=== PATIENT | female | born 1950 | race Caucasian/White ===

== ENCOUNTER 2022-07-01 15:26 | Observation (INO) ==
[2022-07-01] MEDS ORDERED: ACETAMINOPHEN 500 MG TAB PO STA (15:50)
--- NOTE | 2022-07-01 15:54 | Emergency Department Note ---
Impression & Plan Ankle fracture, Atrial fibrillation ED Provider Note NAME: SARAH SCHRADER AGE: 72 SEX: F : 1950 ARRIVES VIA: Ambulance INFORMANT: Patient, ED PROVIDER(S): Kam Weeks MD CHIEF COMPLAINT: Leg pain MEDICAL DECISION MAKING: Patient presents due to concern for leg pain while she was transferring from wheelchair and did suffer pain to the right lower extremity. Plain x-rays were obtained and the patient was given p.o. oxycodone. I did confirm that patient did not have major issue with taking this in the past and states that she had a possible reaction many many years ago. Patient was placed on retail product advisor a nd pulse oximetry. The patient tolerated the pain medication without any issue. The patient was noted to have a right lower extremity fibular fracture and possible avulsion fracture. The patient was placed in a splint. Subsequently the patient was attempted to just transfer back to wheelchair in order to be discharged home but was unable to do so. Given this concern for patient safety IV was established blood work was obtained and did speak the on-call hospitalist service Dr. Campoverde and the patient was admitted to the medicine service.Patient's blood work shows a normal white count H&H and platelet count kidney function with creatinine 0.7 and electrolytes are grossly normal. Definitive Fracture Care note: Dx: Right fibular fracture Plan: Immobilization, rest, ice, elevation, analgesia, orthopedic follow up in 3-5 days. Procedures: Splinting of the right lower extremity Indication: Right fibula fracture Verbal consent obtained. Risks and benefits were explained with the usual customary discussion. The injured extremity was identified. The patient was prepped and measured for the placement of a trilaminar short leg ortho-glass splint. Splint applied in the standard fashion over a layer of webril and sec ured using an elastic bandage. Set into a position of function. Normal neurovascular status after placement verified by me. The patient tolerated the procedure well and the care of the splint was discussed with the patient/family. No complications. Prior /Outside records reviewed: None Differential diagnosis: Fracture, subluxation, dislocation, contusion, ligamentous injury, neurovascular, compartment syndrome, rhabdomyolysis, as well as other pathologies. Diagnostics, as interpreted by me: ECG: A-fib with RVR, rate of 112, normal QRS normal axis Cardiac monitoring: An order was placed for continuous cardiac monitoring. The monitor shows a rate of 98 with irregularly irregular rhythm. Patient was placed on pulse oximetry Medical decision rules: None Imaging studies: See below I informally reviewed the patient's right ankle x-ray which did show a fibular fracture. HPI: Patient presents to the emergency department after she had gone to outpatient wound care clinic and had caught her right lower extremity on her wheelchair and states that she reported feeling a pop with immediate pain. The patient does have a prior history of venous stasis ulcer of the left lower extremity. Patient states that she did have immediate pain. The patient is primarily wheelchair-bound but will transportation equipment painter order to transfer. Patient had been seen at the wound care center and told them about the patient's right leg pain associated discomfort with a wheelchair issue and was referred here for further evaluation and treatment. Patient denies falling. Patient did not take anything for pain prior to arrival. Patient does have a known history of A-fib PAST MEDICAL HISTORY: See Below PAST SURGICAL HISTORY: See Below SOCIAL HISTORY: See Below HOME MEDICATIONS: See Below ALLERGIES: See Below VITALS: See Below PHYSICAL EXAMINATION: GENERAL: NAD, wearing a mask, non-toxic. BMI 45. EYE EXAM: Normal conjunctiva. PERRL, no anisocoria and EOM's grossly intact w/o pain. NECK: Supple, no nuchal rigidity, no adenopathy, non-tender. No signs of meningismus. FROM of the neck with good chin to chest and neck extension. No stridor. LUNGS: Clear to auscultation. Normal chest wall mechanics. HEART: Irregularly irregular, no MRG. ABDOMEN: Abdomen soft, non-tender, no masses, no rebound or guarding. BACK: No CVA TTP. SKIN: No rashes and no bruising. UPPER EXTREMITIES: Upper extremities are grossly normal. LOWER EXTREMITIES: Pain to palpation to the distal tibia and lateral ankle as well as proximal foot, swelling noted. Neurovascular intact distally. Left lower extremity in boot. NEURO EXAM: A&O x3, cranial nerves II-XII grossly intact, normal speech, moves all 4 extremities. 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 Beliefs That Will Affect Care: None marital status: Single Current Living Situation: Significant Other current occupational status: disabled How many Children do You have: 2 Feels Safe at Home: Yes Childhood Exposure to Second-Hand Smoke: Yes Diet: regular caffeine: Yes during the past year weight has: remained stable Dental Care, Regularly: No Physical Activity Frequency: Does not Exercise Seatbelt Use: always Sunscreen Use: Yes Assistive Devices: Bedside Commode, Cane, Walker and Wheelchair Allergies Allergies Allergy/AdvReac Type Severity Reaction Status Date / Time strawberry Allergy Verified 07/02/22 10:32 oxycodone [From OxyContin] AdvReac Severe sob Verified 07/01/22 16:13 Home Meds Home Medications Medication Instructions Recorded Confirmed amiodarone 200 mg tablet 200 mg PO DAILY 04/20/22 07/01/22 diclofenac sodium 1 % topical gel 2 g topical DIRECTED PRN Pain 04/20/22 07/01/22 diltiazem HCl 240 mg 240 mg PO DAILY 04/20/22 07/01/22 tablet,extended release 24 hr gabapentin 800 mg tablet 800 mg PO TID 06/30/22 07/01/22 potassium chloride 20 mEq 20 meq PO DAILY 07/01/22 07/01/22 tablet,extended release Previous Rx's Medication Instructions Recorded famotidine 20 mg tablet 20 mg PO BID #60 tabs 07/03/21 furosemide 40 mg tablet 40 mg PO DAILY #30 tabs 07/03/21 lisinopril 40 mg tablet 40 mg PO BID #30 tabs 07/03/21 pantoprazole 40 mg tablet,delayed 40 mg PO DAILY #30 tabs 07/03/21 release simvastatin 10 mg tablet 10 mg PO DAILY #30 tabs 07/03/21 sertraline 50 mg tablet 50 mg PO DAILY #30 tabs 04/20/22 metoprolol succinate 25 mg 25 mg PO DAILY #30 tabs 04/30/22 tablet,extended release 24 hr apixaban 5 mg tablet 5 mg PO BID #60 tabs 05/26/22 vibegron 75 mg tablet (Gemtesa) 75 mg PO DAILY #90 tabs 06/26/22 sumatriptan succinate 50 mg tablet See Rx Instructions PO .COMPLEX 06/30/22 PRN migraine headache #30 tabs oxycodone 5 mg tablet 10 mg PO Q4H PRN pain #30 tabs 07/07/22 Results & Data (ED) Vital Signs Vital Signs - 24 hr 07/01/22 15:34 Temperature 36.8 C Temperature Source Oral Pulse Rate 108 H Pulse Rhythm Irregular Pulse Strength Normal Respiratory Rate 18 Respiratory Effort / Characteristics Non-Labored Spontaneous Respiratory Depth Normal Respiratory Pattern Regular Blood Pressure 175/123 H Blood Pressure Mean 140 Blood Pressure Position Lying Pulse Oximetry 98 Oxygen Delivery Method Room Air Sepsis Recent Fever Within 48 Hours No Sepsis New/Unexplained Change in Mental Status No Sepsis Action Taken by Nursing No Action Required Home Medications Current Medication List: was personally reviewed by me Laboratory Data Attestation: I reviewed the patient's lab results. 07/06/22 06:15 07/06/22 06:15 Lab Results 07/01/22 07/01/22 07/01/22 Range/Units 19:20 19:20 19:20 WBC 10.69 (4.8-10.8) K/ul RBC 5.03 (4.20-5.40) M/uL Hgb 14.2 (12.0-16.0) g/dl Hct 44.1 (37.0-47.0) % MCV 87.7 (80.0-100.0) fL MCH 28.2 (25.0-34.0) pg MCHC 32.2 (32.0-36.0) g/dL RDW Std Deviation 54.5 H (36.4-46.3) fL RDW Coeff of Jose Miguel 16.9 H (11.5-14.5) % Plt Count 350 (130-400) K/uL MPV 11.3 (9.4-12.4) fL Immature Gran % (Auto) 0.2 % Neut % (Auto) 66.5 % Lymph % (Auto) 22.9 % [place] % (Auto) 7.9 % Eos % (Auto) 1.8 % Baso % (Auto) 0.7 % Neut # (Auto) 7.12 H (1.40-6.50) K/uL Lymph # (Auto) 2.45 (1.2-3.4) K/uL [place] # (Auto) 0.84 H (0.11-0.59) K/uL Eos # (Auto) 0.19 (0-0.50) K/uL Baso # (Auto) 0.07 (0-0.2) K/uL Immature Gran # (Auto) 0.02 (0.01-0.20) K/uL PT 11.2 (9.0-12.0) Seconds INR 1.0 (0.9-1.1) Sodium 138 (136-145) mmol/L Potassium 4.2 (3.5-5.1) mmol/L Chloride 105 (98-107) mmol/L Carbon Dioxide 24 (21-32) mmol/L Anion Gap 9 (3-11) BUN 13 (6-23) mg/dl Creatinine 0.77 (0.6-1.2) mg/dl Est Cr Clr Drug Dosing 95.6 ml/min Est GFR ( Amer) 90.0 ml/min Est GFR (Non-Af Amer) 77.7 ml/min BUN/Creatinine Ratio 16.9 (10-20) Glucose 119 H (70-99(Fasting)) mg/dl Calcium 9.4 (8.6-10.3) mg/dl Phosphorus (2.5-4.9) mg/dl Magnesium 1.8 (1.7-2.4) mg/dl Total Bilirubin 0.4 (0.2-1.0) mg/dl AST 15 (13-39) U/L ALT 10 (7-52) U/L Alkaline Phosphatase 85 (34-104) U/L Total Protein 8.3 (6.0-8.3) gm/dl Albumin 4.1 (3.4-5.0) gm/dl Globulin 4.2 H (2.5-4.0) gm/dl Albumin/Globulin Ratio 1.0 (0.9-2) TSH (0.300-4.500) uIu/ml Free T4 (0.61-1.60) ng/dl SARS-CoV-2, RNA, NAAT (NEGATIVE) 07/01/22 07/01/22 07/02/22 Range/Units 19:20 19:22 07:34 WBC 6.24 (4.8-10.8) K/ul RBC 4.38 (4.20-5.40) M/uL Hgb 12.3 (12.0-16.0) g/dl Hct 39.5 (37.0-47.0) % MCV 90.2 (80.0-100.0) fL MCH 28.1 (25.0-34.0) pg MCHC 31.1 L (32.0-36.0) g/dL RDW Std Deviation 57.0 H (36.4-46.3) fL RDW Coeff of Jose Miguel 17.1 H (11.5-14.5) % Plt Count 282 (130-400) K/uL MPV 11.3 (9.4-12.4) fL Immature Gran % (Auto) 0.0 % Neut % (Auto) 53.4 % Lymph % (Auto) 28.7 % [place] % (Auto) 13.8 % Eos % (Auto) 3.5 % Baso % (Auto) 0.6 % Neut # (Auto) 3.33 (1.40-6.50) K/uL Lymph # (Auto) 1.79 (1.2-3.4) K/uL [place] # (Auto) 0.86 H (0.11-0.59) K/uL Eos # (Auto) 0.22 (0-0.50) K/uL Baso # (Auto) 0.04 (0-0.2) K/uL Immature Gran # (Auto) 0.00 L (0.01-0.20) K/uL PT (9.0-12.0) Seconds INR (0.9-1.1) Sodium (136-145) mmol/L Potassium (3.5-5.1) mmol/L Chloride (98-107) mmol/L Carbon Dioxide (21-32) mmol/L Anion Gap (3-11) BUN (6-23) mg/dl Creatinine (0.6-1.2) mg/dl Est Cr Clr Drug Dosing ml/min Est GFR ( Amer) ml/min Est GFR (Non-Af Amer) ml/min BUN/Creatinine Ratio (10-20) Glucose (70-99(Fasting)) mg/dl Calcium (8.6-10.3) mg/dl Phosphorus (2.5-4.9) mg/dl Magnesium (1.7-2.4) mg/dl Total Bilirubin (0.2-1.0) mg/dl AST (13-39) U/L ALT (7-52) U/L Alkaline Phosphatase (34-104) U/L Total Protein (6.0-8.3) gm/dl Albumin (3.4-5.0) gm/dl Globulin (2.5-4.0) gm/dl Albumin/Globulin Ratio (0.9-2) TSH 8.814 H (0.300-4.500) uIu/ml Free T4 1.04 (0.61-1.60) ng/dl SARS-CoV-2, RNA, NAAT NEGATIVE (NEGATIVE) 07/02/22 07/03/22 07/03/22 Range/Units 07:34 07:11 07:11 WBC 7.11 (4.8-10.8) K/ul RBC 4.62 (4.20-5.40) M/uL Hgb 13.1 (12.0-16.0) g/dl Hct 40.9 (37.0-47.0) % MCV 88.5 (80.0-100.0) fL MCH 28.4 (25.0-34.0) pg MCHC 32.0 (32.0-36.0) g/dL RDW Std Deviation 55.4 H (36.4-46.3) fL RDW Coeff of Jose Miguel 17.0 H (11.5-14.5) % Plt Count 286 (130-400) K/uL MPV 10.8 (9.4-12.4) fL Immature Gran % (Auto) 0.1 % Neut % (Auto) 63.5 % Lymph % (Auto) 22.8 % [place] % (Auto) 9.4 % Eos % (Auto) 3.8 % Baso % (Auto) 0.4 % Neut # (Auto) 4.51 (1.40-6.50) K/uL Lymph # (Auto) 1.62 (1.2-3.4) K/uL [place] # (Auto) 0.67 H (0.11-0.59) K/uL Eos # (Auto) 0.27 (0-0.50) K/uL Baso # (Auto) 0.03 (0-0.2) K/uL Immature Gran # (Auto) 0.01 (0.01-0.20) K/uL PT (9.0-12.0) Seconds INR (0.9-1.1) Sodium 141 140 (136-145) mmol/L Potassium 4.5 4.4 (3.5-5.1) mmol/L Chloride 108 H 103 (98-107) mmol/L Carbon Dioxide 28 32 (21-32) mmol/L Anion Gap 5 5 (3-11) BUN 11 14 (6-23) mg/dl Creatinine 0.63 0.89 (0.6-1.2) mg/dl Est Cr Clr Drug Dosing 116.5 82.4 ml/min Est GFR ( Amer) 104.6 75.6 ml/min Est GFR (Non-Af Amer) 90.2 65.2 ml/min BUN/Creatinine Ratio 17.5 15.7 (10-20) Glucose 94 97 (70-99(Fasting)) mg/dl Calcium 9.4 9.5 (8.6-10.3) mg/dl Phosphorus 3.4 3.6 (2.5-4.9) mg/dl Magnesium 1.9 1.8 (1.7-2.4) mg/dl Total Bilirubin (0.2-1.0) mg/dl AST (13-39) U/L ALT (7-52) U/L Alkaline Phosphatase (34-104) U/L Total Protein (6.0-8.3) gm/dl Albumin 3.6 3.8 (3.4-5.0) gm/dl Globulin (2.5-4.0) gm/dl Albumin/Globulin Ratio (0.9-2) TSH (0.300-4.500) uIu/ml Free T4 (0.61-1.60) ng/dl SARS-CoV-2, RNA, NAAT (NEGATIVE) Administered Medications Discontinued Medications Acetaminophen (Acetaminophen 500 Mg Tab) 1,000 mg PO NOW STA Stop: 07/01/22 15:51 Last Admin: 07/01/22 16:09 Dose: 1,000 mg Documented By: CHING Acetaminophen (Acetaminophen 325 Mg Tab) 650 mg PO Q4H PRN PRN Reason: pain/fever Stop: 07/31/22 21:29 Last Admin: 07/01/22 23:45 Dose: 650 mg Documented By: JOSIAH Acetaminophen (Acetaminophen 500 Mg Tab) 1,000 mg PO Q8H PRN PRN Reason: pain/fever Stop: 07/31/22 21:29 Last Admin: 07/06/22 21:04 Dose: 1,000 mg Documented By: Admin: 07/04/22 10:43 Dose: 1,000 mg Documented By: Admin: 07/03/22 12:42 Dose: 1,000 mg Documented By: FAISAL Amiodarone HCl (Amiodarone 200 Mg Tab) 200 mg PO DAILY [facility] Stop: 08/01/22 08:59 Last Admin: 07/07/22 09:44 Dose: 200 mg Documented By: Admin: 07/06/22 08:58 Dose: 200 mg Documented By: Admin: 07/05/22 08:33 Dose: 200 mg Documented By: Admin: 07/04/22 09:07 Dose: 200 mg Documented By: Admin: 07/03/22 09:49 Dose: 200 mg Documented By: Admin: 07/02/22 09:32 Dose: 200 mg Documented By: EVY Apixaban (Apixaban 5 Mg Tablet) 5 mg PO BID ADDY Stop: 07/31/22 21:29 Last Admin: 07/07/22 09:45 Dose: 5 mg Documented By: Admin: 07/06/22 21:03 Dose: 5 mg Documented By: Admin: 07/06/22 09:00 Dose: 5 mg Documented By: Admin: 07/05/22 20:18 Dose: 5 mg Documented By: Admin: 07/05/22 08:34 Dose: 5 mg Documented By: Admin: 07/04/22 20:58 Dose: 5 mg Documented By: Admin: 07/04/22 09:08 Dose: 5 mg Documented By: Admin: 05/26/23 20:11 Dose: 5 mg Documented By: Admin: 07/03/22 09:47 Dose: 5 mg Documented By: Admin: 07/02/22 20:26 Dose: 5 mg Documented By: Admin: 07/02/22 09:31 Dose: 5 mg Documented By: Admin: 07/01/22 23:24 Dose: 5 mg Documented By: JOSIAH Diltiazem HCl (Diltiazem Hcl 240 Mg Capcr) 240 mg PO DAILY ADDY Stop: 08/01/22 08:59 Last Admin: 07/07/22 09:45 Dose: 240 mg Documented By: Admin: 07/06/22 08:59 Dose: 240 mg Documented By: Admin: 07/05/22 08:31 Dose: 240 mg Documented By: Admin: 07/04/22 09:07 Dose: 240 mg Documented By: Admin: 07/03/22 09:48 Dose: 240 mg Documented By: Admin: 07/02/22 09:31 Dose: 240 mg Documented By: EVY Famotidine (Famotidine 20 Mg Tab) 20 mg PO BID ADDY Stop: 07/31/22 21:29 Last Admin: 07/07/22 09:45 Dose: 20 mg Documented By: Admin: 07/06/22 21:03 Dose: 20 mg Documented By: Admin: 07/06/22 08:59 Dose: 20 mg Documented By: Admin: 07/05/22 20:18 Dose: 20 mg Documented By: Admin: 07/05/22 08:34 Dose: 20 mg Documented By: Admin: 07/04/22 20:58 Dose: 20 mg Documented By: Admin: 07/04/22 09:08 Dose: 20 mg Documented By: Admin: 07/03/22 20:11 Dose: 20 mg Documented By: Admin: 07/03/22 09:48 Dose: 20 mg Documented By: Admin: 07/02/22 20:25 Dose: 20 mg Documented By: Admin: 07/02/22 09:31 Dose: 20 mg Documented By: Admin: 07/01/22 23:24 Dose: 20 mg Documented By: JOSIAH Furosemide (Furosemide 40 Mg Tab) 40 mg PO DAILY ADDY Stop: 08/01/22 08:59 Last Admin: 07/07/22 09:45 Dose: 40 mg Documented By: Admin: 07/06/22 08:59 Dose: 40 mg Documented By: Admin: 07/05/22 08:33 Dose: 40 mg Documented By: SMPeter Admin: 07/04/22 09:08 Dose: 40 mg Documented By: Admin: 07/03/22 09:48 Dose: 40 mg Documented By: Admin: 07/02/22 09:32 Dose: 40 mg Documented By: EVY Gabapentin (Gabapentin 800 Mg Tab) 800 mg PO TID ADDY Stop: 07/31/22 21:29 Last Admin: 07/07/22 14:50 Dose: 800 mg Documented By: Admin: 07/07/22 09:45 Dose: 800 mg Documented By: Admin: 07/06/22 21:03 Dose: 800 mg Documented By: Admin: 07/06/22 14:07 Dose: 800 mg Documented By: Admin: 07/06/22 08:59 Dose: 800 mg Documented By: Admin: 07/05/22 20:18 Dose: 800 mg Documented By: Admin: 07/05/22 13:22 Dose: 800 mg Documented By: Admin: 07/05/22 08:34 Dose: 800 mg Documented By: Admin: 07/04/22 20:59 Dose: 800 mg Documented By: Admin: 07/04/22 13:58 Dose: 800 mg Documented By: SMPeter Admin: 07/04/22 09:08 Dose: 800 mg Documented By: SMPeter Admin: 07/03/22 20:11 Dose: 800 mg Documented By: Admin: 07/03/22 13:56 Dose: 800 mg Documented By: Admin: 07/03/22 09:48 Dose: 800 mg Documented By: Admin: 07/02/22 20:25 Dose: 800 mg Documented By: Admin: 07/02/22 15:12 Dose: 800 mg Documented By: Admin: 07/02/22 09:31 Dose: 800 mg Documented By: Admin: 07/01/22 23:24 Dose: 800 mg Documented By: JOSIAH Lisinopril (Lisinopril 40 Mg Tab) 40 mg PO BID ADDY Stop: 07/31/22 21:29 Last Admin: 07/07/22 09:45 Dose: 40 mg Documented By: Admin: 07/06/22 21:03 Dose: 40 mg Documented By: Admin: 07/06/22 08:59 Dose: 40 mg Documented By: Admin: 07/05/22 20:18 Dose: 40 mg Documented By: Admin: 07/05/22 08:34 Dose: 40 mg Documented By: Admin: 07/04/22 20:59 Dose: 40 mg Documented By: Admin: 07/04/22 09:06 Dose: 40 mg Documented By: Admin: 07/03/22 20:11 Dose: 40 mg Documented By: Admin: 07/03/22 09:48 Dose: 40 mg Documented By: Admin: 07/02/22 20:25 Dose: 40 mg Documented By: Admin: 07/02/22 09:31 Dose: 40 mg Documented By: Admin: 07/01/22 23:24 Dose: 40 mg Documented By: JOSAIH Metoprolol Succinate (Metoprolol Succ 25mg Ext Rel Tab) 25 mg PO DAILY [facility] Stop: 08/01/22 08:59 Last Admin: 07/07/22 09:46 Dose: 25 mg Documented By: Admin: 07/06/22 09:00 Dose: 25 mg Documented By: Admin: 07/05/22 08:31 Dose: 25 mg Documented By: Admin: 07/04/22 09:08 Dose: 25 mg Documented By: Admin: 07/03/22 09:48 Dose: 25 mg Documented By: Admin: 07/02/22 09:31 Dose: 25 mg Documented By: EVY Nystatin (Nystatin Oint 15 Gm Tube) 1 appln EXT BID ADDY Stop: 08/01/22 08:59 Last Admin: 07/03/22 09:49 Dose: 1 appln Documented By: Admin: 07/02/22 20:24 Dose: 1 appln Documented By: Admin: 07/02/22 09:32 Dose: 1 appln Documented By: EVY Nystatin (Nystatin Powder 15gm Btl) 1 appln EXT BID ADDY Stop: 08/02/22 20:59 Last Admin: 07/07/22 09:46 Dose: 1 appln Documented By: Admin: 07/06/22 21:02 Dose: 1 appln Documented By: Admin: 07/06/22 09:01 Dose: 1 appln Documented By: Admin: 07/05/22 20:19 Dose: 1 appln Documented By: Admin: 07/05/22 08:31 Dose: 1 appln Documented By: Admin: 07/04/22 20:59 Dose: 1 appln Documented By: Admin: 07/04/22 09:13 Dose: 1 appln Documented By: Admin: 07/03/22 20:11 Dose: 1 appln Documented By: CHRISTOPHER Oxycodone HCl (Oxycodone Hcl Ir 5 Mg Tab (Immediate Release)) 2.5 mg PO NOW STA Stop: 07/01/22 16:47 Last Admin: 07/01/22 17:01 Dose: 2.5 mg Documented By: NILA Oxycodone HCl (Oxycodone Hcl Ir 5 Mg Tab (Immediate Release)) 5 mg PO NOW STA Stop: 07/01/22 23:47 Last Admin: 07/01/22 23:58 Dose: 5 mg Documented By: SLMike Oxycodone HCl (Oxycodone Hcl Ir 5 Mg Tab (Immediate Release)) 5 mg PO Q8H PRN PRN Reason: Mod-Sev Pain (Scale 4-10) Stop: 07/16/22 04:50 Last Admin: 07/02/22 09:37 Dose: 5 mg Documented By: EA Oxycodone HCl (Oxycodone Hcl Ir 5 Mg Tab (Immediate Release)) 5 mg PO NOW ONE Stop: 07/02/22 10:57 Last Admin: 07/02/22 11:08 Dose: 5 mg Documented By: EA Oxycodone HCl (Oxycodone Hcl Ir 5 Mg Tab (Immediate Release)) 10 mg PO Q4H PRN PRN Reason: Severe Pain (Scale 7-10) Stop: 07/16/22 04:50 Last Admin: 07/07/22 07:58 Dose: 10 mg Documented By: Admin: 07/06/22 21:04 Dose: 10 mg Documented By: Admin: 07/06/22 14:07 Dose: 10 mg Documented By: Admin: 07/06/22 06:25 Dose: 10 mg Documented By: Admin: 07/05/22 05:46 Dose: 10 mg Documented By: Admin: 07/04/22 20:57 Dose: 10 mg Documented By: Admin: 07/04/22 13:23 Dose: 10 mg Documented By: Admin: 07/03/22 09:57 Dose: 10 mg Documented By: Admin: 07/02/22 16:07 Dose: 10 mg Documented By: EVY Pantoprazole Sodium (Pantoprazole 40 Mg Tab) 40 mg PO DAILY [facility] Stop: 08/01/22 08:59 Last Admin: 07/07/22 09:46 Dose: 40 mg Documented By: Admin: 07/06/22 09:00 Dose: 40 mg Documented By: Admin: 07/05/22 08:32 Dose: 40 mg Documented By: Admin: 07/04/22 09:07 Dose: 40 mg Documented By: Admin: 07/03/22 09:48 Dose: 40 mg Documented By: Admin: 07/02/22 09:31 Dose: 40 mg Documented By: EVY Potassium Chloride (Potassium Chloride Crtab 20 Meq Tabcr) 20 meq PO DAILY [facility]DY Stop: 08/01/22 08:59 Last Admin: 07/07/22 09:46 Dose: 20 meq Documented By: Admin: 07/06/22 09:00 Dose: 20 meq Documented By: Admin: 07/05/22 08:33 Dose: 20 meq Documented By: Admin: 07/04/22 09:07 Dose: 20 meq Documented By: Admin: 07/03/22 09:47 Dose: 20 meq Documented By: Admin: 07/02/22 09:31 Dose: 20 meq Documented By: EVY Sertraline HCl (Sertraline Hcl 50 Mg Tablet) 50 mg PO DAILY [facility]DY Stop: 08/01/22 08:59 Last Admin: 07/07/22 09:46 Dose: 50 mg Documented By: Admin: 07/06/22 09:00 Dose: 50 mg Documented By: Admin: 07/05/22 08:31 Dose: 50 mg Documented By: Admin: 07/04/22 09:07 Dose: 50 mg Documented By: Admin: 07/03/22 09:47 Dose: 50 mg Documented By: Admin: 07/02/22 09:31 Dose: 50 mg Documented By: EVY Simvastatin (Simvastatin 10 Mg Tab) 10 mg PO DAILY [facility] Stop: 08/01/22 08:59 Last Admin: 07/07/22 09:46 Dose: 10 mg Documented By: Admin: 07/06/22 09:00 Dose: 10 mg Documented By: Admin: 07/05/22 08:33 Dose: 10 mg Documented By: Admin: 07/04/22 09:07 Dose: 10 mg Documented By: Admin: 07/03/22 09:48 Dose: 10 mg Documented By: Admin: 07/02/22 09:31 Dose: 10 mg Documented By: EVY Vibegron (Vibegron 75 Mg Tab) 75 mg PO DAILY [facility] Stop: 08/01/22 08:59 Last Admin: 07/07/22 09:46 Dose: 75 mg Documented By: Admin: 07/06/22 09:01 Dose: 75 mg Documented By: Admin: 07/05/22 08:33 Dose: 75 mg Documented By: Admin: 07/04/22 09:06 Dose: 75 mg Documented By: Admin: 07/03/22 09:48 Dose: 75 mg Documented By: Admin: 07/02/22 09:31 Dose: 75 mg Documented By: EVY Imaging Data Radiologist's Impression: Ankle X-Ray 07/01/22 15:38 XR ankle RT min 3V routine CLINICAL HISTORY: Right ankle pain. COMPARISON: None FINDINGS: Note is made of an acute oblique minimally displaced fracture of the distal diaphysis of the right fibula. No ankle mortise widening is noted. There is subtle lucency within the anterior distal right tibia on lateral projection. An additional fracture would be difficult to exclude. Diffuse soft tissue swelling is present. Small plantar calcaneal spur is present. IMPRESSION: 1. Acute oblique minimally displaced distal diaphyseal fracture of the right fibula. No ankle mortise widening. 2. Equivocal additional subtle avulsion fracture of the distal anterior right tibia on lateral projection. 3. Diffuse soft tissue swelling of the right leg, ankle and foot. ACT 112: Negative or not required by law. Electronically signed by: Patrick Caraballo M.D. 07/01/2022 4:19 PM Foot X-Ray 07/01/22 15:50 XR foot RT 2V CLINICAL HISTORY: foot pain TECHNIQUE: 2 views of the right foot were obtained. Comparison: None available at the time of this dictation. FINDINGS: No fractures are present. The joint spaces are well preserved. Extensive soft tissue swelling is seen. IMPRESSION: Extensive soft tissue swelling is seen without fracture in the foot. Please see ankle radiograph for findings of fibular fracture. ACT 112: Negative or not required by law. Electronically signed by: Jean Marie Watkins M.D. 07/01/2022 4:54 PM Tibia/Fibula X-Ray 07/01/22 15:50 XR tibia fibula RT 2V CLINICAL HISTORY: harris pain TECHNIQUE: 2 radiographic views of the right leg were obtained. Comparison: None available at the time of this dictation. FINDINGS: Oblique fracture of the distal fibula is seen in the level of the tibiofibular syndesmosis. Joint spaces are well-preserved. Soft tissue swelling is seen. IMPRESSION: Oblique fracture of the distal fibula compatible with Graves B fracture. Soft tissue swelling is seen. ACT 112: Negative or not required by law. Electronically signed by: Jean Marie Watkins M.D. 07/01/2022 4:48 PM Chest X-Ray 07/01/22 18:47 XR chest 1V portable CLINICAL HISTORY: weakness TECHNIQUE: Single frontal radiograph of the chest was obtained. Comparison: None available at the time of this dictation. FINDINGS: Exam is limited by underpenetration. Cardiomegaly is noted. The lungs are clear. No evidence of pleural effusion or pneumothorax. IMPRESSION: No acute chest disease. ACT 112: Negative or not required by law. Electronically signed by: Jean Marie Watkins M.D. 07/02/2022 7:17 AM Discharge Plan Visit Data Chief Complaint: Ankle Pain Stated Complaint: ANKLE PAIN ED Provider: Kam Weeks Discharge Problem: Ankle fracture, Atrial fibrillation Patient Disposition: Admitted As Inpatient Condition: Good Discharge Instructions Interventions: ED Discharge Assessment Last Done: 07/01/22 20:30
--- NOTE | 2022-07-01 16:21 | XRay Report ---
XR ankle RT min 3V routine CLINICAL HISTORY: Right ankle pain. COMPARISON: None FINDINGS: Note is made of an acute oblique minimally displaced fracture of the distal diaphysis of t he right fibula. No ankle mortise widening is noted. There is subtle lucency within the anterior dist al right tibia on lateral projection. An additional fracture would be difficult to exclude. Diffuse s oft tissue swelling is present. Small plantar calcaneal spur is present. IMPRESSION: 1. Acute oblique minimally displaced distal diaphyseal fracture of the right fibula. No ankle mortise widening. 2. Equivocal additional subtle avulsion fracture of the distal anterior right tibia on lateral projec tion. 3. Diffuse soft tissue swelling of the right leg, ankle and foot. ACT 112: Negative or not required by law. Electronically signed by: Patrick Caraballo M.D. 07/01/2022 4:19 PM
[2022-07-01] MEDS ORDERED: oxyCODONE HCL IR 5 MG TAB (IMMEDIATE RELEASE) PO STA ×2 (16:46→23:46)
--- NOTE | 2022-07-01 16:49 | XRay Report ---
XR tibia fibula RT 2V CLINICAL HISTORY: harris pain TECHNIQUE: 2 radiographic views of the right leg were obtained. Comparison: None available at the time of this dictation. FINDINGS: Oblique fracture of the distal fibula is seen in the level of the tibiofibular syndesmosis. Joint spa david are well-preserved. Soft tissue swelling is seen. IMPRESSION: Oblique fracture of the distal fibula compatible with Graves B fracture. Soft tissue swelling is seen. ACT 112: Negative or not required by law. Electronically signed by: Jean Marie Watkins M.D. 07/01/2022 4:48 PM
--- NOTE | 2022-07-01 16:55 | XRay Report ---
XR foot RT 2V CLINICAL HISTORY: foot pain TECHNIQUE: 2 views of the right foot were obtained. Comparison: None available at the time of this dictation. FINDINGS: No fractures are present. The joint spaces are well preserved. Extensive soft tissue swelling is seen . IMPRESSION: Extensive soft tissue swelling is seen without fracture in the foot. Please see ankle radiograph for findings of fibular fracture. ACT 112: Negative or not required by law. Electronically signed by: Jean Marie Watkins M.D. 07/01/2022 4:54 PM
[2022-07-01 19:36] LABS: Basophils # (auto) 0.07 K/uL (0-0.2); Basophils % (auto) 0.7 %; Eosinophils # (auto) 0.19 K/uL (0-0.50); Eosinophils % (auto) 1.8 %; Hematocrit (blood only) 44.1 % (37.0-47.0); Hemoglobin 14.2 g/dl (12.0-16.0); Immature Granulocytes # (auto) 0.02 K/uL (0.01-0.20); Immature Granulocytes % (auto) 0.2 %; Lymphocytes # (auto) 2.45 K/uL (1.2-3.4); Lymphocytes % (auto) 22.9 %; Mean Corpuscular Hemoglobin 28.2 pg (25.0-34.0); Mean Corpuscular Hgb Conc 32.2 g/dL (32.0-36.0); Mean Corpuscular Volume 87.7 fL (80.0-100.0); Mean Platelet Volume 11.3 fL (9.4-12.4); Monocytes # (auto) 0.84 K/uL (0.11-0.59); Monocytes % (auto) 7.9 %; Neutrophils # (auto) 7.12 K/uL (1.40-6.50); Neutrophils % (auto) 66.5 %; Platelet Count 350 K/uL (130-400); RDW Coefficient of Variation 16.9 % (11.5-14.5); RDW Standard Deviation 54.5 fL (36.4-46.3); Red Blood Count 5.03 M/uL (4.20-5.40); White Blood Count 10.69 K/ul (4.8-10.8)
[2022-07-01 19:51] LABS: Albumin Level 4.1 gm/dl (3.4-5.0); BUN Creatinine Ratio 16.9 (10-20); Bilirubin,Total 0.4 mg/dl (0.2-1.0); Calcium 9.4 mg/dl (8.6-10.3); Creatinine Clr Calc Pharmacy 95.6 ml/min; Est GFR (Non-African American) 77.7 ml/min; Globulin 4.2 gm/dl (2.5-4.0); Magnesium 1.8 mg/dl (1.7-2.4); Potassium 4.2 mmol/L (3.5-5.1); Total Protein 8.3 gm/dl (6.0-8.3)
[2022-07-01 20:09] LABS: Thyroid Stimulating Hormone 8.814 uIu/ml (0.300-4.500)
[2022-07-01 20:19] LABS: Prothrombin Time 11.2 Seconds (9.0-12.0)
[2022-07-01 20:45] LABS: T4 Free Thyroxine 1.04 ng/dl (0.61-1.60)
[2022-07-01] MEDS ORDERED: ONDANSETRON INJ 2 MG/ML 2 ML VIAL IV PRN (21:30)
[2022-07-01] MEDS ORDERED: ACETAMINOPHEN 325 MG TAB PO PRN (21:30)
[2022-07-01] MEDS ORDERED: SUMAtriptan succinate 50 MG TAB PO PRN (21:30)
[2022-07-01] MEDS: APIXABAN 5 MG TABLET PO SCH (23:24)
[2022-07-01] MEDS: lisinopril 40 MG TAB PO SCH (23:24)
[2022-07-01] MEDS: FAMOTIDINE 20 MG TAB PO SCH (23:24)
[2022-07-01] MEDS: GABAPENTIN 800 MG TAB PO SCH (23:24)
--- NOTE | 2022-07-02 02:39 | History & Physical Report ---
Date of Service July 02, 2022 The patient was seen and examined on July 01, 2022 Assessment & Plan (1) Ankle fracture: (2) Lymphedema: (3) Venous stasis ulcer of left lower extremity: (4) Abnormal ankle brachial index: (5) Gait instability: (6) Legal blindness: (7) Atrial fibrillation: (8) Depression with anxiety: (9) Hyperlipemia: (10) Urinary incontinence: (11) Hypertension: (12) Fibromyalgia: Plan right ankle fracture/oblique fibula fracture/question tibial avulsion fracture- Continue splint as applied in the ED Patient was unable to go home this evening due to not having enough help to travel consult orthopedic surgery Dr. Foy Left lower extremity venous ulcer- She was due for Unna boot change at the outpatient wound care center today consult wound care inpatient for Unna boot change. She reports changing 3 times per week Atrial fibrillation/hypertension- Continue amiodarone, apixaban, diltiazem extended release, furosemide, lisinopril, metoprolol succinate, potassium chloride GERD- Continue pantoprazole and famotidine Chronic pain syndrome- Tylenol 650 mg by mouth every 6 hours as needed for mild pain or fever Oxycodone 5 mg by mouth every 8 hours as needed for moderate pain Depression with anxiety- Continue gabapentin, sertraline, and vibegron Admission and Anticipated Discharge Date Admission Date: July 01, 2022 History of Present Illness Chief Complaint: the patient was brought to the emergency department after she presented to the outpatient wound care clinic with complaint of right ankle pain after catching her right lower extremity on her wheelchair and reporting hearing a pop and feeling immediate pain Primary Care Provider: RAJI Engel the patient is a 72-year-old female with a past medical history including lymphedema, venous stasis ulcer of left lower extremity, abnormal ankle-brachial index, gait instability, legal blindness, trigger, atrial fibrillation, depression with anxiety, hyperlipidemia, urinary incontinence, spinal stenosis, osteoporosis, fibromyalgia, morbid obesity with BMI 45.9, and hypertension. The patient was going in for routine visit to outpatient wound care center where she was going to have her Unna boot on left lower extremity changed, however, as she was getting out of the car her right lower extremity caught on the wheelchair, she heard a pop as she was turning and developed pain. She went to the wound care center, told them of her discomfort, and they sent her over to the ED for assessment. X-rays of right lower extremity showed a oblique right fibula fracture, and right tibial avulsion fracture. She was given Tylenol 1 g p.o., and oxycodone 2.5 mg p.o., and referred for evaluation for admission. Allergies Allergy/AdvReac Type Severity Reaction Status Date / Time oxycodone [From OxyContin] AdvReac Severe sob Verified 07/01/22 16:13 Home Medications Medication Instructions Recorded Confirmed Type famotidine 20 mg tablet 20 mg PO BID #60 tabs 07/03/21 07/01/22 Rx furosemide 40 mg tablet 40 mg PO DAILY #30 tabs 07/03/21 07/01/22 Rx lisinopril 40 mg tablet 40 mg PO BID #30 tabs 07/03/21 07/01/22 Rx pantoprazole 40 mg tablet,delayed 40 mg PO DAILY #30 tabs 07/03/21 07/01/22 Rx release simvastatin 10 mg tablet 10 mg PO DAILY #30 tabs 07/03/21 07/01/22 Rx amiodarone 200 mg tablet 200 mg PO DAILY 04/20/22 07/01/22 History diclofenac sodium 1 % topical gel 2 g topical DIRECTED PRN Pain 04/20/22 07/01/22 History diltiazem HCl 240 mg 240 mg PO DAILY 04/20/22 07/01/22 History tablet,extended release 24 hr sertraline 50 mg tablet 50 mg PO DAILY #30 tabs 04/20/22 07/01/22 Rx metoprolol succinate 25 mg 25 mg PO DAILY #30 tabs 04/30/22 07/01/22 Rx tablet,extended release 24 hr apixaban 5 mg tablet 5 mg PO BID #60 tabs 05/26/22 07/01/22 Rx vibegron 75 mg tablet (Gemtesa) 75 mg PO DAILY #90 tabs 06/26/22 07/01/22 Rx gabapentin 800 mg tablet 800 mg PO TID 06/30/22 07/01/22 History sumatriptan succinate 50 mg tablet See Rx Instructions PO .COMPLEX 06/30/22 07/01/22 Rx PRN migraine headache #30 tabs oxycodone 5 mg tablet 5 mg PO Q8H PRN pain #9 tabs 07/01/22 Rx potassium chloride 20 mEq 20 meq PO DAILY 07/01/22 07/01/22 History tablet,extended release Past Med/Surg History Medical History FH: cholecystectomy Fibromyalgia Hypertension Osteoporosis Spinal stenosis Surgical History History of cholecystectomy Family History Sister Myocardial infarction Mother Diabetes Father Cancer Denies family history of Ovarian cancer Prostate cancer Breast cancer Colorectal cancer Social History Smoking Status: Never smoker Second Hand Exposure: No; Do You Dip or Chew Tobacco: No; Tobacco Cessation Education Requested by Patient: No Hx Alcohol Use: No Hx Substance Use: No Preferred Language: [place] Communication Ability: Effective Visual Impairment: No Limitations Hearing Ability: Normal 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 Beliefs That Will Affect Care: None marital status: Single Current Living Situation: Significant Other current occupational status: disabled How many Children do You have: 2 Other Information That Helps Us Care for You: No Feels Safe at Home: Yes Safety Concerns: Feels Safe At This Time Childhood Exposure to Second-Hand Smoke: Yes Diet: regular caffeine: Yes during the past year weight has: remained stable Dental Care, Regularly: No Physical Activity Frequency: Does not Exercise Seatbelt Use: always Sunscreen Use: Yes Assistive Devices: Walker and Wheelchair Review of Systems Review of Systems: The patient denies chest pain, palpitations, shortness of breath, dyspnea on exertion, cough, sore throat, fevers, chills, sweats, weight change, fatigue, nausea, vomiting, diarrhea , constipation, abdominal pain, pelvic pain, blood in urine or stool, dysuria, urinary frequency or urgency, lightheadedness, dizziness, headache, memory loss, loss of consciousness, abnormal bruising or bl eeding, focal or generalized weakness, numbness or tingling in arms, generalized arthralgias or myalgias, back or neck pain, or night sweats. The review of systems is otherwise negative other than for that already noted above, and at least 10 systems have been reviewed. Physical Exam Physical Exam: The patient is awake, alert and oriented 3, well developed and well nourished, normocephalic and atraumatic, lying in bed and in no acute distress. HEENT--PERRL, EOMI, mucous membranes and oropharynx Normal. Neck--supple. No JVD. No bruits. Thyroid normal, trachea midline, no adenopathy. Heart--normal S1 and S2. No murmurs, rubs or gallops. Lungs--clear bilaterally, no respiratory distress, no accessory muscle use. Abdomen--normal bowel sounds and soft. Nontender. Nondistended, no hernias or masses, no organomegaly. Extremities-- Left lower extremity wrapped in an Unna zhu,> right lower e xtremity wrapped with splint Dermatologic-- limited lower extremity exam. Normal upper extremities and otherwise Neurologic--cranial nerves II through XII grossly intact. Rheumatologic--normal range of motion. limited exam Psychiatric--normal affect. Results & Data Results & Data Vital Signs (Past 12 Hours) Vital Signs Temp Pulse Resp BP Pulse Ox O2 Del Method 07/01/22 20:05 94 H 18 07/01/22 20:05 143/99 H 07/01/22 20:00 96 H 18 07/01/22 19:12 122 H 24 07/01/22 18:01 100 H 22 94 07/01/22 18:01 173/121 H 07/01/22 18:00 101 H 23 94 07/01/22 17:31 113 H 25 H 95 07/01/22 17:31 200/147 H 07/01/22 17:25 200/144 H 07/01/22 17:25 99 H 19 95 07/01/22 17:00 90 22 94 07/01/22 16:21 92 H 14 95 07/01/22 20:05 91 H 93 Room Air 07/01/22 18:12 93 H 18 171/122 H 98 Room Air 07/01/22 17:32 20 95 Room Air 07/01/22 16:20 105 H 07/01/22 16:53 98 07/01/22 15:34 36.8 C 108 H 18 175/123 H 98 Room Air Laboratory Results Laboratory Results WBC 10.69 K/ul (4.8-10.8) 07/01/22 19:20 RBC 5.03 M/uL (4.20-5.40) 07/01/22 19:20 Hgb 14.2 g/dl (12.0-16.0) 07/01/22 19:20 Hct 44.1 % (37.0-47.0) 07/01/22 19:20 MCV 87.7 fL (80.0-100.0) 07/01/22 19:20 MCH 28.2 pg (25.0-34.0) 07/01/22 19:20 MCHC 32.2 g/dL (32.0-36.0) 07/01/22 19:20 RDW Std Deviation 54.5 fL (36.4-46.3) H 07/01/22 19:20 RDW Coeff of Jose Miguel 16.9 % (11.5-14.5) H 07/01/22 19:20 Plt Count 350 K/uL (130-400) 07/01/22 19:20 MPV 11.3 fL (9.4-12.4) 07/01/22 19:20 Immature Gran % (Auto) 0.2 % 07/01/22 19:20 Neut % (Auto) 66.5 % 07/01/22 19:20 Lymph % (Auto) 22.9 % 07/01/22 19:20 Evans % (Auto) 7.9 % 07/01/22 19:20 Eos % (Auto) 1.8 % 07/01/22 19:20 Baso % (Auto) 0.7 % 07/01/22 19:20 Neut # (Auto) 7.12 K/uL (1.40-6.50) H 07/01/22 19:20 Lymph # (Auto) 2.45 K/uL (1.2-3.4) 07/01/22 19:20 Evans # (Auto) 0.84 K/uL (0.11-0.59) H 07/01/22 19:20 Eos # (Auto) 0.19 K/uL (0-0.50) 07/01/22 19:20 Baso # (Auto) 0.07 K/uL (0-0.2) 07/01/22 19:20 Immature Gran # (Auto) 0.02 K/uL (0.01-0.20) 07/01/22 19:20 PT 11.2 Seconds (9.0-12.0) 07/01/22 19:20 INR 1.0 (0.9-1.1) 07/01/22 19:20 Sodium 138 mmol/L (136-145) 07/01/22 19:20 Potassium 4.2 mmol/L (3.5-5.1) 07/01/22 19:20 Chloride 105 mmol/L (98-107) 07/01/22 19:20 Carbon Dioxide 24 mmol/L (21-32) 07/01/22 19:20 Anion Gap 9 (3-11) 07/01/22 19:20 BUN 13 mg/dl (6-23) 07/01/22 19:20 Creatinine 0.77 mg/dl (0.6-1.2) 07/01/22 19:20 Est Cr Clr Drug Dosing 95.6 ml/min 07/01/22 19:20 Est GFR ( Amer) 90.0 ml/min 07/01/22 19:20 Est GFR (Non-Af Amer) 77.7 ml/min 07/01/22 19:20 BUN/Creatinine Ratio 16.9 (10-20) 07/01/22 19:20 Glucose 119 mg/dl (70-99(Fasting)) H 07/01/22 19:20 Calcium 9.4 mg/dl (8.6-10.3) 07/01/22 19:20 Magnesium 1.8 mg/dl (1.7-2.4) 07/01/22 19:20 Total Bilirubin 0.4 mg/dl (0.2-1.0) 07/01/22 19:20 AST 15 U/L (13-39) 07/01/22 19:20 ALT 10 U/L (7-52) 07/01/22 19:20 Alkaline Phosphatase 85 U/L (34-104) 07/01/22 19:20 Total Protein 8.3 gm/dl (6.0-8.3) 07/01/22 19:20 Albumin 4.1 gm/dl (3.4-5.0) 07/01/22 19:20 Globulin 4.2 gm/dl (2.5-4.0) H 07/01/22 19:20 Albumin/Globulin Ratio 1.0 (0.9-2) 07/01/22 19:20 TSH 8.814 uIu/ml (0.300-4.500) H 07/01/22 19:20 Free T4 1.04 ng/dl (0.61-1.60) 07/01/22 19:20 SARS-CoV-2, RNA, NAAT NEGATIVE (NEGATIVE) 07/01/22 19:22 Impressions Ankle X-Ray 07/01/22 15:38 XR ankle RT min 3V routine CLINICAL HISTORY: Right ankle pain. COMPARISON: None FINDINGS: Note is made of an acute oblique minimally displaced fracture of the distal diaphysis of the right fibula. No ankle mortise widening is noted. There is subtle lucency within the anterior distal right tibia on lateral projection. An additional fracture would be difficult to exclude. Diffuse soft tissue swelling is present. Small plantar calcaneal spur is present. IMPRESSION: 1. Acute oblique minimally displaced distal diaphyseal fracture of the right fibula. No ankle mortise widening. 2. Equivocal additional subtle avulsion fracture of the distal anterior right tibia on lateral projection. 3. Diffuse soft tissue swelling of the right leg, ankle and foot. ACT 112: Negative or not required by law. Electronically signed by: Patrick Caraballo M.D. 07/01/2022 4:19 PM Foot X-Ray 07/01/22 15:50 XR foot RT 2V CLINICAL HISTORY: foot pain TECHNIQUE: 2 views of the right foot were obtained. Comparison: None available at the time of this dictation. FINDINGS: No fractures are present. The joint spaces are well preserved. Extensive soft tissue swelling is seen. IMPRESSION: Extensive soft tissue swelling is seen without fracture in the foot. Please see ankle radiograph for findings of fibular fracture. ACT 112: Negative or not required by law. Electronically signed by: Jean Marie Watkins M.D. 07/01/2022 4:54 PM Tibia/Fibula X-Ray 07/01/22 15:50 XR tibia fibula RT 2V CLINICAL HISTORY: harris pain TECHNIQUE: 2 radiographic views of the right leg were obtained. Comparison: None available at the time of this dictation. FINDINGS: Oblique fracture of the distal fibula is seen in the level of the tibiofibular syndesmosis. Joint spaces are well-preserved. Soft tissue swelling is seen. IMPRESSION: Oblique fracture of the distal fibula compatible with Graves B fracture. Soft tissue swelling is seen. ACT 112: Negative or not required by law. Electronically signed by: Jean Marie Watkins M.D. 07/01/2022 4:48 PM Code Status & VTE Plan Code Status full code VTE Prophylaxis Plan VTE Prophylaxis will be ordered: Yes PG Care Time/CCT Total # of Minutes Spent Total Time Spent with Patient: Total time spent is greater than 50% in coordination of care (as documented) at patient's floor/unit and/or counseling patient: Coding Level of Care Code 39830 INT INP/OBS CARE 3/75MIN Diagnoses Ankle fracture S82.899A Lymphedema I89.0 Venous stasis ulcer of left lower extremity I83.029; L97.929 Abnormal ankle brachial index R68.89 Gait instability R26.81 Legal blindness H54.8 Atrial fibrillation I48.91 Depression with anxiety F41.8 Hyperlipemia E78.5 Urinary incontinence R32 Hypertension I10 Fibromyalgia M79.7
[2022-07-02] MEDS ORDERED: oxyCODONE HCL IR 5 MG TAB (IMMEDIATE RELEASE) PO PRN (04:51)
--- NOTE | 2022-07-02 07:18 | XRay Report ---
XR chest 1V portable CLINICAL HISTORY: weakness TECHNIQUE: Single frontal radiograph of the chest was obtained. Comparison: None available at the time of this dictation. FINDINGS: Exam is limited by underpenetration. Cardiomegaly is noted. The lungs are clear. No evidence of pleur al effusion or pneumothorax. IMPRESSION: No acute chest disease. ACT 112: Negative or not required by law. Electronically signed by: Jean Marie Watkins M.D. 07/02/2022 7:17 AM
[2022-07-02 08:49] LABS: Basophils # (auto) 0.04 K/uL (0-0.2); Basophils % (auto) 0.6 %; Eosinophils # (auto) 0.22 K/uL (0-0.50); Eosinophils % (auto) 3.5 %; Hematocrit (blood only) 39.5 % (37.0-47.0); Hemoglobin 12.3 g/dl (12.0-16.0); Lymphocytes # (auto) 1.79 K/uL (1.2-3.4); Lymphocytes % (auto) 28.7 %; Mean Corpuscular Hemoglobin 28.1 pg (25.0-34.0); Mean Corpuscular Hgb Conc 31.1 g/dL (32.0-36.0); Mean Corpuscular Volume 90.2 fL (80.0-100.0); Mean Platelet Volume 11.3 fL (9.4-12.4); Monocytes # (auto) 0.86 K/uL (0.11-0.59); Monocytes % (auto) 13.8 %; Neutrophils # (auto) 3.33 K/uL (1.40-6.50); Neutrophils % (auto) 53.4 %; Platelet Count 282 K/uL (130-400); RDW Coefficient of Variation 17.1 % (11.5-14.5); Red Blood Count 4.38 M/uL (4.20-5.40); White Blood Count 6.24 K/ul (4.8-10.8)
[2022-07-02 08:59] LABS: Albumin Level 3.6 gm/dl (3.4-5.0); BUN Creatinine Ratio 17.5 (10-20); Calcium 9.4 mg/dl (8.6-10.3); Creatinine Clr Calc Pharmacy 116.5 ml/min; Est GFR (African American) 104.6 ml/min; Est GFR (Non-African American) 90.2 ml/min; Magnesium 1.9 mg/dl (1.7-2.4); Phosphorus 3.4 mg/dl (2.5-4.9); Potassium 4.5 mmol/L (3.5-5.1)
[2022-07-02] MEDS: APIXABAN 5 MG TABLET PO SCH ×2 (09:31→20:26)
[2022-07-02] MEDS: GABAPENTIN 800 MG TAB PO SCH ×3 (09:31→20:25)
[2022-07-02] MEDS: SIMVASTATIN 10 MG TAB PO SCH (09:31)
[2022-07-02] MEDS: dilTIAZem HCL 240 MG CAPCR PO SCH (09:31)
[2022-07-02] MEDS: PANTOprazole 40 MG TAB PO SCH (09:31)
[2022-07-02] MEDS: SERTRALINE HCL 50 MG TABLET PO SCH (09:31)
[2022-07-02] MEDS: POTASSIUM CHLORIDE CRTAB 20 MEQ TABCR PO SCH (09:31)
[2022-07-02] MEDS: lisinopril 40 MG TAB PO SCH ×2 (09:31→20:25)
[2022-07-02] MEDS: FAMOTIDINE 20 MG TAB PO SCH ×2 (09:31→20:25)
[2022-07-02] MEDS: METOPROLOL SUCC 25MG EXT REL TAB PO SCH (09:31)
[2022-07-02] MEDS: VIBEGRON 75 MG TAB PO SCH (09:31)
[2022-07-02] MEDS: FUROSEMIDE 40 MG TAB PO SCH (09:32)
[2022-07-02] MEDS: AMIODARONE 200 MG TAB PO SCH (09:32)
[2022-07-02] MEDS: NYSTATIN OINT 15 GM TUBE EXT SCH ×2 (09:32→20:24)
--- NOTE | 2022-07-02 09:54 | Orthopedic Consultation ---
Date of Consultation July 02, 2022 Assessment & Plan (1) Ankle fracture: Cast placement Nonweightbearing on Right LE x 6 weeks Wheelchair use only Pain control PO meds per medicine service discretion DVT per med service will need f/u at [facility] in 2 weeks to change cast and obtain next set of xray Most likely will need inpatient rehab or SNF Case management eval. (2) Lymphedema: (3) Morbid obesity: (4) Legal blindness: Supervising Physician Co-Signing Physician Notes I saw and examined the patient, reviewed her x-ray findings, and formulated the treatment plan constituting a substantial portion of the visit. I agree with the above note. She is a complicated case given her legal blindness, morbid obesity, venous stasis changes, and lymphedema. She is a poor surgical candidate because of these factors as any potential benefits of surgery would be hugely outweighed by the risks. The fracture is nondisplaced and should heal with nonsurgical management. However she will need to maintain strict nonweightbearing on the right lower extremity. We will place her into a cast today which will be changed biweekly in order to monitor her skin. Because of the size of her leg the cast will only partially protect her ankle however. She is a fall risk because of her legal blindness and therefore needs to be in a bed or wheelchair at all times until the fracture is healed. DVT prophylaxis per the primary team. History of Present Illness Reason for Consultation: Nondisplaced Right ankle fracture Requesting Physician: Loyd Foy MD Attending Physician: Jose Emmanuel MD History of Present Illness This 72-year-old female with a past medical history including lymphedema, venous stasis ulcer of left lower extremity, abnormal ankle-brachial index, gait instability, legal blindness, trigger, atrial fibrillation, depression with anxiety, hyperlipidemia, urinary incontinence, spinal stenosis, osteoporosis, fibromyalgia, morbid obesity with BMI 45.9, and hypertension. The patient was going in for routine visit to outpatient wound care center where she was going to have her Unna boot on left lower extremity changed, however, as she was getting out of the car her right lower extremity caught on the wheelchair, she heard a pop as she was turning and developed pain. She went to the wound care center, told them of her discomfort, and they sent her over to the ED for assessment. X-rays of right lower extremity showed a nondisplaced oblique right fibula fracture, and right tibial avulsion fracture. Allergies Allergy/AdvReac Type Severity Reaction Status Date / Time oxycodone [From OxyContin] AdvReac Severe sob Verified 07/01/22 16:13 Home Medications Medication Instructions Recorded Confirmed Type famotidine 20 mg tablet 20 mg PO BID #60 tabs 07/03/21 07/01/22 Rx furosemide 40 mg tablet 40 mg PO DAILY #30 tabs 07/03/21 07/01/22 Rx lisinopril 40 mg tablet 40 mg PO BID #30 tabs 07/03/21 07/01/22 Rx pantoprazole 40 mg tablet,delayed 40 mg PO DAILY #30 tabs 07/03/21 07/01/22 Rx release simvastatin 10 mg tablet 10 mg PO DAILY #30 tabs 07/03/21 07/01/22 Rx amiodarone 200 mg tablet 200 mg PO DAILY 04/20/22 07/01/22 History diclofenac sodium 1 % topical gel 2 g topical DIRECTED PRN Pain 04/20/22 07/01/22 History diltiazem HCl 240 mg 240 mg PO DAILY 04/20/22 07/01/22 History tablet,extended release 24 hr sertraline 50 mg tablet 50 mg PO DAILY #30 tabs 04/20/22 07/01/22 Rx metoprolol succinate 25 mg 25 mg PO DAILY #30 tabs 04/30/22 07/01/22 Rx tablet,extended release 24 hr apixaban 5 mg tablet 5 mg PO BID #60 tabs 05/26/22 07/01/22 Rx vibegron 75 mg tablet (Gemtesa) 75 mg PO DAILY #90 tabs 06/26/22 07/01/22 Rx gabapentin 800 mg tablet 800 mg PO TID 06/30/22 07/01/22 History sumatriptan succinate 50 mg tablet See Rx Instructions PO .COMPLEX 06/30/22 07/01/22 Rx PRN migraine headache #30 tabs oxycodone 5 mg tablet 5 mg PO Q8H PRN pain #9 tabs 07/01/22 Rx potassium chloride 20 mEq 20 meq PO DAILY 07/01/22 07/01/22 History tablet,extended release Patient History Medical History FH: cholecystectomy Fibromyalgia Hypertension Osteoporosis Spinal stenosis Surgical History History of cholecystectomy Family History Sister Myocardial infarction Mother Diabetes Father Cancer Denies family history of Ovarian cancer Prostate cancer Breast cancer Colorectal cancer Social History Smoking Status: Never smoker Second Hand Exposure: No; Do You Dip or Chew Tobacco: No; Tobacco Cessation Education Requested by Patient: No Hx Alcohol Use: No Hx Substance Use: No Preferred Language: Lao Communication Ability: Effective Visual Impairment: No Limitations Hearing Ability: Normal Sales Inspector Required: No Beliefs That Will Affect Care: None marital status: Single Current Living Situation: Significant Other current occupational status: disabled How many Children do You have: 2 Other Information That Helps Us Care for You: No Feels Safe at Home: Yes Safety Concerns: Feels Safe At This Time Childhood Exposure to Second-Hand Smoke: Yes Diet: regular caffeine: Yes during the past year weight has: remained stable Dental Care, Regularly: No Physical Activity Frequency: Does not Exercise Seatbelt Use: always Sunscreen Use: Yes Assistive Devices: Walker and Wheelchair Review of Systems Review of Systems: All systems reviewed & are unremarkable except as noted in Subjective Physical Exam Physical Exam: Right Lower Extremity: significant lymphedema affecting entire LE below the knee. Mild erythema over the entire anterior harris about 10 x 16 inches in diameter without skin loss or openings. TTP over lateral malleolus/distal fibula. Minimal TTP over medial malleolus. Cap refill approx 3 seconds. Difficult to palpation periph pulses. Toes and ankle mobile. Able to detect light sensation to touch over toes/foot/lower leg. Unable to perform SLRT. Poor skin quality but no open areas. Entire Left LE is wrapped with Unna boot. Results & Data Vital Signs (Past 12 Hours) Vital Signs Temp Pulse Resp BP Pulse Ox O2 Del Method 07/02/22 08:15 Room Air 07/02/22 07:54 36.3 C L 78 18 151/85 H 94 Room Air Medications Administered Laboratory Results WBC 6.24 K/ul (4.8-10.8) 07/02/22 07:34 RBC 4.38 M/uL (4.20-5.40) 07/02/22 07:34 Hgb 12.3 g/dl (12.0-16.0) 07/02/22 07:34 Hct 39.5 % (37.0-47.0) 07/02/22 07:34 MCV 90.2 fL (80.0-100.0) 07/02/22 07:34 MCH 28.1 pg (25.0-34.0) 07/02/22 07: MCHC 31.1 g/dL (32.0-36.0) L 07/02/22 07:34 RDW Std Deviation 57.0 fL (36.4-46.3) H 07/02/22 07:34 RDW Coeff of Jose Miguel 17.1 % (11.5-14.5) H 07/02/22 07:34 Plt Count 282 K/uL (130-400) 07/02/22 07:34 MPV 11.3 fL (9.4-12.4) 07/02/22 07:34 Immature Gran % (Auto) 0.0 % 07/02/22 07:34 Neut % (Auto) 53.4 % 07/02/22 07:34 Lymph % (Auto) 28.7 % 07/02/22 07:34 [place] % (Auto) 13.8 % 07/02/22 07:34 Eos % (Auto) 3.5 % 07/02/22 07:34 Baso % (Auto) 0.6 % 07/02/22 07:34 Neut # (Auto) 3.33 K/uL (1.40-6.50) 07/02/22 07:34 Lymph # (Auto) 1.79 K/uL (1.2-3.4) 07/02/22 07:34 [place] # (Auto) 0.86 K/uL (0.11-0.59) H 07/02/22 07:34 Eos # (Auto) 0.22 K/uL (0-0.50) 07/02/22 07:34 Baso # (Auto) 0.04 K/uL (0-0.2) 07/02/22 07:34 Immature Gran # (Auto) 0.00 K/uL (0.01-0.20) L 07/02/22 07:34 PT 11.2 Seconds (9.0-12.0) 07/01/22 19:20 INR 1.0 (0.9-1.1) 07/01/22 19:20 Sodium 141 mmol/L (136-145) 07/02/22 07:34 Potassium 4.5 mmol/L (3.5-5.1) 07/02/22 07:34 Chloride 108 mmol/L (98-107) H 07/02/22 07:34 Carbon Dioxide 28 mmol/L (21-32) 07/02/22 07:34 Anion Gap 5 (3-11) 07/02/22 07:34 BUN 11 mg/dl (6-23) 07/02/22 07:34 Creatinine 0.63 mg/dl (0.6-1.2) 07/02/22 07:34 Est Cr Clr Drug Dosing 116.5 ml/min 07/02/22 07:34 Est GFR ( Amer) 104.6 ml/min 07/02/22 07:34 Est GFR (Non-Af Amer) 90.2 ml/min 07/02/22 07:34 BUN/Creatinine Ratio 17.5 (10-20) 07/02/22 07:34 Glucose 94 mg/dl (70-99(Fasting)) 07/02/22 07:34 Calcium 9.4 mg/dl (8.6-10.3) 07/02/22 07:34 Phosphorus 3.4 mg/dl (2.5-4.9) 07/02/22 07:34 Magnesium 1.9 mg/dl (1.7-2.4) 07/02/22 07:34 Total Bilirubin 0.4 mg/dl (0.2-1.0) 07/01/22 19:20 AST 15 U/L (13-39) 07/01/22 19:20 ALT 10 U/L (7-52) 07/01/22 19:20 Alkaline Phosphatase 85 U/L (34-104) 07/01/22 19:20 Total Protein 8.3 gm/dl (6.0-8.3) 07/01/22 19:20 Albumin 3.6 gm/dl (3.4-5.0) 07/02/22 07:34 Globulin 4.2 gm/dl (2.5-4.0) H 07/01/22 19:20 Albumin/Globulin Ratio 1.0 (0.9-2) 07/01/22 19:20 TSH 8.814 uIu/ml (0.300-4.500) H 07/01/22 19:20 Free T4 1.04 ng/dl (0.61-1.60) 07/01/22 19:20 SARS-CoV-2, RNA, NAAT NEGATIVE (NEGATIVE) 07/01/22 19:22 Impressions Ankle X-Ray 07/01/22 15:38 XR ankle RT min 3V routine CLINICAL HISTORY: Right ankle pain. COMPARISON: None FINDINGS: Note is made of an acute oblique minimally displaced fracture of the distal diaphysis of the right fibula. No ankle mortise widening is noted. There is subtle lucency within the anterior distal right tibia on lateral projection. An additional fracture would be difficult to exclude. Diffuse soft tissue swelling is present. Small plantar calcaneal spur is present. IMPRESSION: 1. Acute oblique minimally displaced distal diaphyseal fracture of the right fibula. No ankle mortise widening. 2. Equivocal additional subtle avulsion fracture of the distal anterior right tibia on lateral projection. 3. Diffuse soft tissue swelling of the right leg, ankle and foot. ACT 112: Negative or not required by law. Electronically signed by: Patrick Caraballo M.D. 07/01/2022 4:19 PM Foot X-Ray 07/01/22 15:50 XR foot RT 2V CLINICAL HISTORY: foot pain TECHNIQUE: 2 views of the right foot were obtained. Comparison: None available at the time of this dictation. FINDINGS: No fractures are present. The joint spaces are well preserved. Extensive soft tissue swelling is seen. IMPRESSION: Extensive soft tissue swelling is seen without fracture in the foot. Please see ankle radiograph for findings of fibular fracture. ACT 112: Negative or not required by law. Electronically signed by: Jean Marie aWtkins M.D. 07/01/2022 4:54 PM Tibia/Fibula X-Ray 07/01/22 15:50 XR tibia fibula RT 2V CLINICAL HISTORY: harris pain TECHNIQUE: 2 radiographic views of the right leg were obtained. Comparison: None available at the time of this dictation. FINDINGS: Oblique fracture of the distal fibula is seen in the level of the tibiofibular syndesmosis. Joint spaces are well-preserved. Soft tissue swelling is seen. IMPRESSION: Oblique fracture of the distal fibula compatible with Graves B fracture. Soft tissue swelling is seen. ACT 112: Negative or not required by law. Electronically signed by: Jean Marie Watkins M.D. 07/01/2022 4:48 PM Chest X-Ray 07/01/22 18:47 XR chest 1V portable CLINICAL HISTORY: weakness TECHNIQUE: Single frontal radiograph of the chest was obtained. Comparison: None available at the time of this dictation. FINDINGS: Exam is limited by underpenetration. Cardiomegaly is noted. The lungs are clear. No evidence of pleural effusion or pneumothorax. IMPRESSION: No acute chest disease. ACT 112: Negative or not required by law. Electronically signed by: Jean Marie Watkins M.D. 07/02/2022 7:17 AM
[2022-07-02] MEDS ORDERED: oxyCODONE HCL IR 5 MG TAB (IMMEDIATE RELEASE) PO ONE (10:56)
--- NOTE | 2022-07-02 16:03 | Hospitalist Progress Note ---
Date of Service July 02, 2022 Assessment & Plan (1) Ankle fracture: Plan: Acute/unstable - low risk right ankle fracture/oblique fibula fracture/question tibial avulsion fracture- - Splint applied in ED, during my assessment this AM was not in place - Dr. Foy consulted from orthopedic surgery, appreciate assistance - cast applied to RLE, will need outpatient ortho f/u in 2 weeks with updated x-rays to monitor healing - Strict NWB to RLE x 4-6 weeks - On Eliquis which is providing adequate DVT ppx - PT/OT eval completed today, recommending rehab, pt very upset by this and refusing rehab - CM on consult to assist in dc planning - Pain control with APAP (increase to 1000mg q8h prn), OxyIR 5mg q4h prn mod pain, OxyIR 10mg q4h prn severe pain (2) Venous stasis ulcer of left lower extremity: Plan: Left lower extremity venous ulcer - chronic/stable - She was due for Unna boot change at the outpatient wound care center today - consult wound care inpatient for Unna boot change. She reports changing 3 times per week (3) Atrial fibrillation: Plan: Atrial fibrillation/hypertension- Chronic/stable - Continue amiodarone, apixaban, diltiazem extended release, furosemide, lisinopril, metoprolol succinate, potassium chloride (4) Depression with anxiety: Plan: Depression with anxiety - chronic/stable Continue gabapentin, sertraline, and vibegron (5) Fibromyalgia: Plan: Chronic pain syndrome/fibromyalgia - chronic/stable - Continue gabapentin 800mg TID Plan Patient is medically stable for discharge BUT from a safety standpoint is not felt to be safe to return home as her significant other//caregiver does not feel that he can help her transfer from bed to wheelchair alone given she was a max 2 assist. He is going to call his agency tomorrow to determine if additional caregivers can come to assist pt at home. She is refusing SNF/Rehab upon discharge which she has capacity to make that decision, even if we do not agree with it. She has been urged not to sign out AMA but stay another night to determine that the appropriate support measures are in place for her to return home. If they are unable to provide additional caregivers, will discuss with her again rehab/snf. Pt agreeable to spending another night. Plan d/w Dr. Emmanuel. Admission and Anticipated Discharge Date Admission Date: July 01, 2022 Subjective Patient was seen on daily rounds this morning. She reports her pain in RLE is adequately controlled and has no other complaints. She is hoping to be discharged home with her today. She is already active with home health. Physical Exam Physical Exam: GENERAL: 72 yo well-developed morbidly obese F. AAOx4. NAD. LUNGS: Clear to auscultation bilaterally w/o W/R/R. CARDIOVASCULAR: Regular rate and rhythm. EXTREMITIES: chronic b/l LE lymphedema. Results & Data Results & Data Vital Signs (Past 12 Hours) Vital Signs Temp Pulse Resp BP Pulse Ox O2 Del Method 07/02/22 14:42 36.5 C 85 18 131/84 94 Room Air 07/02/22 08:15 Room Air 07/02/22 07:54 36.3 C L 78 18 151/85 H 94 Room Air Laboratory Results 07/02/22 07:34 07/02/22 07:34 PG Care Time/CCT Total # of Minutes Spent Total Time Spent with Patient: Total time spent is greater than 50% in coordination of care (as documented) at patient's floor/unit and/or counseling patient: Coding Level of Care Code 11965 SUB INP/OBS CARE 2/35MIN Diagnoses Ankle fracture S82.899A Venous stasis ulcer of left lower extremity I83.029; L97.929 Atrial fibrillation I48.91 Depression with anxiety F41.8 Fibromyalgia M79.7
[2022-07-02] MEDS: oxyCODONE HCL IR 5 MG TAB (IMMEDIATE RELEASE) PO PRN (16:07)
--- NOTE | 2022-07-03 05:58 | Electrocardiogram Report ---
Test Reason : Blood Pressure : / mmHG Vent. Rate : 112 BPM Atrial Rate : 000 BPM P-R Int : 000 ms QRS Dur : 082 ms QT Int : 352 ms P-R-T Axes : 000 -02 044 degrees QTc Int : 480 ms Atrial fibrillation with rapid ventricular response Low voltage QRS Abnormal ECG No previous ECGs available Confirmed by Ilya Blood ([id number]) on 07/03/2022 5:57:45 AM Referred By: REFERRED SELF Confirmed By:Ilya Blood
[2022-07-03 07:34] LABS: Basophils # (auto) 0.03 K/uL (0-0.2); Basophils % (auto) 0.4 %; Eosinophils # (auto) 0.27 K/uL (0-0.50); Eosinophils % (auto) 3.8 %; Hematocrit (blood only) 40.9 % (37.0-47.0); Hemoglobin 13.1 g/dl (12.0-16.0); Immature Granulocytes # (auto) 0.01 K/uL (0.01-0.20); Immature Granulocytes % (auto) 0.1 %; Lymphocytes # (auto) 1.62 K/uL (1.2-3.4); Lymphocytes % (auto) 22.8 %; Mean Corpuscular Hemoglobin 28.4 pg (25.0-34.0); Mean Corpuscular Volume 88.5 fL (80.0-100.0); Mean Platelet Volume 10.8 fL (9.4-12.4); Monocytes # (auto) 0.67 K/uL (0.11-0.59); Monocytes % (auto) 9.4 %; Neutrophils # (auto) 4.51 K/uL (1.40-6.50); Neutrophils % (auto) 63.5 %; Platelet Count 286 K/uL (130-400); RDW Standard Deviation 55.4 fL (36.4-46.3); Red Blood Count 4.62 M/uL (4.20-5.40); White Blood Count 7.11 K/ul (4.8-10.8)
[2022-07-03 07:52] LABS: Albumin Level 3.8 gm/dl (3.4-5.0); BUN Creatinine Ratio 15.7 (10-20); Calcium 9.5 mg/dl (8.6-10.3); Creatinine Clr Calc Pharmacy 82.4 ml/min; Est GFR (African American) 75.6 ml/min; Est GFR (Non-African American) 65.2 ml/min; Magnesium 1.8 mg/dl (1.7-2.4); Phosphorus 3.6 mg/dl (2.5-4.9); Potassium 4.4 mmol/L (3.5-5.1)
--- NOTE | 2022-07-03 09:12 | Orthopedic Progress Note ---
Date of Service July 03, 2022 Assessment & Plan (1) Ankle fracture: Plan: Cast placement Nonweightbearing on Right LE x 6 weeks Wheelchair use only Pain control PO meds per medicine service discretion DVT per med service will need f/u at [facility] in 2 weeks to change cast and obtain next set of xray Case management eval for discharge planning. With questions contact our clinic at [phone] (2) Lymphedema: (3) Morbid obesity: (4) Legal blindness: Admission and Anticipated Discharge Date Admission Date: July 01, 2022 Subjective This 72 yo F was seen this morning for follow-up of right ankle fracture that was casted yesterday. She states that the cast feels very comfortable and is compressing her ankle adequately. She does not feel it is too tight. She states that it is heavy and makes it difficult for her to attempt lifting her leg. She is hoping to be discharged home with her today. She is already active with home health. Currently she denies chest pain, shortness of breath, fever, chills, sweats or numbness or tingling in her right lower extremity. Review of Systems Review of Systems: All systems reviewed & are unremarkable except as noted in Subjective Physical Exam Physical Exam: Right Lower Extremity: Cast is clean dry and intact, well molded and not tight. Cap refill approx 3 seconds. Toes and ankle mobile. Able to detect light sensation to touch over toes/foot/lower leg. Unable to perform SLRT. Patient is able to detect light sensation to touch over the pads of her digits. Entire Left LE is wrapped with Unna boot. Results & Data Vital Signs (Past 12 Hours) Vital Signs Temp Pulse Resp BP Pulse Ox O2 Del Method 07/03/22 07:49 36.5 C 94 H 18 145/69 H 94 Room Air
[2022-07-03] MEDS: POTASSIUM CHLORIDE CRTAB 20 MEQ TABCR PO SCH (09:47)
[2022-07-03] MEDS: APIXABAN 5 MG TABLET PO SCH ×2 (09:47→20:11)
[2022-07-03] MEDS: SERTRALINE HCL 50 MG TABLET PO SCH (09:47)
[2022-07-03] MEDS: PANTOprazole 40 MG TAB PO SCH (09:48)
[2022-07-03] MEDS: FUROSEMIDE 40 MG TAB PO SCH (09:48)
[2022-07-03] MEDS: VIBEGRON 75 MG TAB PO SCH (09:48)
[2022-07-03] MEDS: dilTIAZem HCL 240 MG CAPCR PO SCH (09:48)
[2022-07-03] MEDS: GABAPENTIN 800 MG TAB PO SCH ×3 (09:48→20:11)
[2022-07-03] MEDS: SIMVASTATIN 10 MG TAB PO SCH (09:48)
[2022-07-03] MEDS: METOPROLOL SUCC 25MG EXT REL TAB PO SCH (09:48)
[2022-07-03] MEDS: FAMOTIDINE 20 MG TAB PO SCH ×2 (09:48→20:11)
[2022-07-03] MEDS: lisinopril 40 MG TAB PO SCH ×2 (09:48→20:11)
[2022-07-03] MEDS: AMIODARONE 200 MG TAB PO SCH (09:49)
[2022-07-03] MEDS: NYSTATIN OINT 15 GM TUBE EXT SCH (09:49)
[2022-07-03] MEDS: oxyCODONE HCL IR 5 MG TAB (IMMEDIATE RELEASE) PO PRN (09:57)
[2022-07-03] MEDS: ACETAMINOPHEN 500 MG TAB PO PRN (12:42)
--- NOTE | 2022-07-03 15:24 | Hospitalist Progress Note ---
Date of Service July 03, 2022 Assessment & Plan (1) Ankle fracture: Plan: Acute/unstable - low risk right ankle fracture/oblique fibula fracture/question tibial avulsion fracture- - Splint applied in ED, during my assessment this AM was not in place - Dr. Foy consulted from orthopedic surgery, appreciate assistance - cast applied to RLE, will need outpatient ortho f/u in 2 weeks with updated x-rays to monitor healing - Strict NWB to RLE x 4-6 weeks - On Eliquis which is providing adequate DVT ppx - PT/OT eval completed today, recommending rehab, pt very upset by this and refusing rehab - CM on consult to assist in dc planning - Pain control with APAP (increase to 1000mg q8h prn), OxyIR 5mg q4h prn mod pain, OxyIR 10mg q4h prn severe pain (2) Venous stasis ulcer of left lower extremity: Plan: Left lower extremity venous ulcer - chronic/stable - She was due for Unna boot change at the outpatient wound care center today - consult wound care inpatient for Unna boot change. She reports changing 3 times per week (3) Atrial fibrillation: Plan: Atrial fibrillation/hypertension- Chronic/stable - Continue amiodarone, apixaban, diltiazem extended release, furosemide, lisinopril, metoprolol succinate, potassium chloride (4) Depression with anxiety: Plan: Depression with anxiety - chronic/stable Continue gabapentin, sertraline, and vibegron (5) Fibromyalgia: Plan: Chronic pain syndrome/fibromyalgia - chronic/stable - Continue gabapentin 800mg TID Plan Patient is medically stable for discharge BUT from a safety standpoint is not felt to be safe to return home as her significant other//caregiver does not feel that he can help her transfer from bed to wheelchair alone given she was a max 2 assist. He has called multiple agencies, including his own, and they are unable to provide additional caregivers until after the hol. She is refusing rehab and she has capacity to make that decision. She h as been urged not to sign out AMA but stay another night to determine that the appropriate support measures are in place for her to return home. She will now be made a full admission and continue inpatient stay until a safe discharge plan is in place. Plan d/w Dr. Emmanuel. Admission and Anticipated Discharge Date Admission Date: July 01, 2022 Subjective Patient was seen on daily rounds this morning. She is frustrated that she is still here. Unfortunately her who is also her paid caregiver has been unsuccessful in finding any additional caregivers with the upcoming weekend. She notes that her pain is adequately controlled in her R ankle/leg. She denies cp or dyspnea. Physical Exam Physical Exam: GENERAL: 72 yo well-developed morbidly obese F. AAOx4. NAD. LUNGS: Clear to auscultation bilaterally w/o W/R/R. CARDIOVASCULAR: Irregularly irregular with controlled rate EXTREMITIES: chronic b/l LE lymphedema. Results & Data Results & Data Vital Signs (Past 12 Hours) Vital Signs Temp Pulse Resp BP Pulse Ox O2 Del Method 07/03/22 08:00 Room Air 07/03/22 07:49 36.5 C 94 H 18 145/69 H 94 Room Air PG Care Time/CCT Total # of Minutes Spent Total Time Spent with Patient: Total time spent is greater than 50% in coordination of care (as documented) at patient's floor/unit and/or counseling patient: Coding Level of Care Code 45333 SUB INP/OBS CARE 03/04MIN Diagnoses Ankle fracture S82.899A Venous stasis ulcer of left lower extremity I83.029; L97.929 Atrial fibrillation I48.91 Depression with anxiety F41.8 Fibromyalgia M79.7
[2022-07-03] MEDS: NYSTATIN POWDER 15GM BTL EXT SCH (20:11)
[2022-07-04 06:42] LABS: Basophils # (auto) 0.04 K/uL (0-0.2); Basophils % (auto) 0.7 %; Eosinophils # (auto) 0.28 K/uL (0-0.50); Eosinophils % (auto) 4.7 %; Hematocrit (blood only) 40.3 % (37.0-47.0); Hemoglobin 12.5 g/dl (12.0-16.0); Immature Granulocytes # (auto) 0.02 K/uL (0.01-0.20); Immature Granulocytes % (auto) 0.3 %; Mean Corpuscular Hemoglobin 27.7 pg (25.0-34.0); Mean Corpuscular Volume 89.2 fL (80.0-100.0); Mean Platelet Volume 11.2 fL (9.4-12.4); Monocytes # (auto) 0.74 K/uL (0.11-0.59); Monocytes % (auto) 12.3 %; Neutrophils # (auto) 3.43 K/uL (1.40-6.50); Platelet Count 276 K/uL (130-400); RDW Coefficient of Variation 16.9 % (11.5-14.5); RDW Standard Deviation 55.3 fL (36.4-46.3); Red Blood Count 4.52 M/uL (4.20-5.40); White Blood Count 6.01 K/ul (4.8-10.8)
[2022-07-04 07:19] LABS: Albumin Level 3.4 gm/dl (3.4-5.0); Calcium 9.1 mg/dl (8.6-10.3); Creatinine Clr Calc Pharmacy 90.6 ml/min; Est GFR (African American) 84.7 ml/min; Est GFR (Non-African American) 73.1 ml/min; Magnesium 1.7 mg/dl (1.7-2.4); Phosphorus 3.9 mg/dl (2.5-4.9)
--- NOTE | 2022-07-04 09:02 | Hospitalist Progress Note ---
Date of Service July 04, 2022 Assessment & Plan (1) Ankle fracture: Plan: Acute/unstable - low risk right ankle fracture/oblique fibula fracture/question tibial avulsion fracture- - Dr. Foy consulted from orthopedic surgery, appreciate assistance - cast applied to RLE, will need outpatient ortho f/u in 2 weeks with updated x-rays to monitor healing - Strict NWB to RLE x 4-6 weeks - On Eliquis which is providing adequate DVT ppx - PT/OT eval completed, recommending rehab, pt very upset by this and refusing rehab - CM on consult to assist in dc planning - See above note, trying to get more care at home, not safe to return home until more care is able t be provided - Pain control with APAP (increase to 1000mg q8h prn), OxyIR 5mg q4h prn mod pain, OxyIR 10mg q4h prn severe pain (2) Venous stasis ulcer of left lower extremity: Plan: Left lower extremity venous ulcer - chronic/stable - Wound care consulted and changed patient's Coban lite compression wrap LLE - Patient to change every Wednesday, Wednesday and Wednesday (3) Atrial fibrillation: Plan: Atrial fibrillation/hypertension- Chronic/stable - Continue amiodarone, apixaban, diltiazem extended release, furosemide, lisinopril, metoprolol succinate, potassium chloride (4) Depression with anxiety: Plan: Depression with anxiety - chronic/stable Continue gabapentin, sertraline, and vibegron (5) Fibromyalgia: Plan: Chronic pain syndrome/fibromyalgia - chronic/stable - Continue gabapentin 800mg TID Plan Patient is medically stable for discharge BUT from a safety standpoint is not felt to be safe to return home as her significant other//caregiver does not feel that he can help her transfer from bed to wheelchair alone given she was a max 2 assist. He has called multiple agencies, including his own, and they are unable to provide additional caregivers until after the hol. She is refusing rehab and she has capacity to make that decision. She has been urged not to sign out AMA but stay another night to determine that the appropriate support measures are in place for her to return home. She will now be made a full admission and continue inpatient stay until a safe discharge plan is in place. Plan d/w Dr. Emmanuel. Admission and Anticipated Discharge Date Admission Date: July 03, 2022 Subjective Patient seen this morning in rounds. She was awake laying in bed in NAD. She denied any problems. Patient is medically stable for discharge BUT from a safety standpoint is not felt to be safe to return home as her significant other//caregiver does not feel that he can help her transfer from bed to wheelchair alone given she was a max 2 assist. Per records the has called multiple agencies, including his own, and they are unable to provide additional caregivers until after the hol and patient refused rehab and she has capacity to make that decision. Review of Systems Review of Systems: The patient denies chest pain, palpitations, shortness of breath, dyspnea on exertion, cough, sore throat, fevers, chills, sweats, weight change, fatigue, nausea, vomiting, diarrhea , constipation, abdominal pain, pelvic pain, blood in urine or stool, dysuria, urinary frequency or urgency, lightheadedness, dizziness, headache, memory loss, loss of consciousness, abnormal bruising or bleeding, focal or generalized weakness, numbness or tingling in arms, generalized arthralgias or myalgias, back or neck pain, or night sweats. The review of systems is otherwise negative other than for that already noted above, and at least 10 systems have been reviewed. Physical Exam Constitutional: well developed, + morbidly obese and comfortable; no acute distress Neck: trachea midline, no thyromegaly Respiratory: normal respiratory effort, lungs clear to auscultation Cardiovascular: Rate/Rhythm: + irregularly irregular Heart Sounds: normal S1 and normal S2 Gastrointestinal (Abdomen): obese, normal BS, large reducible umbilical hernia Musculoskeletal: right leg with cast, left leg with compression dressing for chronic lymphedema, able to moves toes and intact sensation, nails onychomycosis Psychiatric: A+Ox3, euthymic affect Results & Data Results & Data Vital Signs (Past 12 Hours) Vital Signs Temp Pulse Resp BP Pulse Ox O2 Del Method 07/04/22 07:30 Room Air 07/04/22 07:02 36.5 C 76 16 128/87 94 Room Air Laboratory Results Abnormal lab results 07/04/22 07/04/22 Range/Units 06:13 06:13 MCHC 31.0 L (32.0-36.0) g/dL RDW Std Deviation 55.3 H (36.4-46.3) fL RDW Coeff of Jose Miguel 16.9 H (11.5-14.5) % Gordon # (Auto) 0.74 H (0.11-0.59) K/uL BUN/Creatinine Ratio 21.0 H (10-20) PG Care Time/CCT Total # of Minutes Spent Total Time Spent with Patient: Total time spent is greater than 50% in coordination of care (as documented) at patient's floor/unit and/or counseling patient: Coding Level of Care Code 77673 SUB INP/OBS CARE 03/04MIN Diagnoses Ankle fracture S82.899A Venous stasis ulcer of left lower extremity I83.029; L97.929 Atrial fibrillation I48.91 Depression with anxiety F41.8 Fibromyalgia M79.7
[2022-07-04] MEDS: lisinopril 40 MG TAB PO SCH ×2 (09:06→20:59)
[2022-07-04] MEDS: VIBEGRON 75 MG TAB PO SCH (09:06)
[2022-07-04] MEDS: PANTOprazole 40 MG TAB PO SCH (09:07)
[2022-07-04] MEDS: SIMVASTATIN 10 MG TAB PO SCH (09:07)
[2022-07-04] MEDS: POTASSIUM CHLORIDE CRTAB 20 MEQ TABCR PO SCH (09:07)
[2022-07-04] MEDS: dilTIAZem HCL 240 MG CAPCR PO SCH (09:07)
[2022-07-04] MEDS: SERTRALINE HCL 50 MG TABLET PO SCH (09:07)
[2022-07-04] MEDS: AMIODARONE 200 MG TAB PO SCH (09:07)
[2022-07-04] MEDS: FUROSEMIDE 40 MG TAB PO SCH (09:08)
[2022-07-04] MEDS: APIXABAN 5 MG TABLET PO SCH ×2 (09:08→20:58)
[2022-07-04] MEDS: GABAPENTIN 800 MG TAB PO SCH ×3 (09:08→20:59)
[2022-07-04] MEDS: METOPROLOL SUCC 25MG EXT REL TAB PO SCH (09:08)
[2022-07-04] MEDS: FAMOTIDINE 20 MG TAB PO SCH ×2 (09:08→20:58)
[2022-07-04] MEDS: NYSTATIN POWDER 15GM BTL EXT SCH ×2 (09:13→20:59)
[2022-07-04] MEDS: ACETAMINOPHEN 500 MG TAB PO PRN (10:43)
[2022-07-04] MEDS: oxyCODONE HCL IR 5 MG TAB (IMMEDIATE RELEASE) PO PRN ×2 (13:23→20:57)
[2022-07-05] MEDS: oxyCODONE HCL IR 5 MG TAB (IMMEDIATE RELEASE) PO PRN (05:46)
[2022-07-05] MEDS: METOPROLOL SUCC 25MG EXT REL TAB PO SCH (08:31)
[2022-07-05] MEDS: dilTIAZem HCL 240 MG CAPCR PO SCH (08:31)
[2022-07-05] MEDS: NYSTATIN POWDER 15GM BTL EXT SCH ×2 (08:31→20:19)
[2022-07-05] MEDS: SERTRALINE HCL 50 MG TABLET PO SCH (08:31)
[2022-07-05] MEDS: PANTOprazole 40 MG TAB PO SCH (08:32)
[2022-07-05] MEDS: VIBEGRON 75 MG TAB PO SCH (08:33)
[2022-07-05] MEDS: AMIODARONE 200 MG TAB PO SCH (08:33)
[2022-07-05] MEDS: FUROSEMIDE 40 MG TAB PO SCH (08:33)
[2022-07-05] MEDS: SIMVASTATIN 10 MG TAB PO SCH (08:33)
[2022-07-05] MEDS: POTASSIUM CHLORIDE CRTAB 20 MEQ TABCR PO SCH (08:33)
[2022-07-05] MEDS: GABAPENTIN 800 MG TAB PO SCH ×3 (08:34→20:18)
[2022-07-05] MEDS: lisinopril 40 MG TAB PO SCH ×2 (08:34→20:18)
[2022-07-05] MEDS: APIXABAN 5 MG TABLET PO SCH ×2 (08:34→20:18)
[2022-07-05] MEDS: FAMOTIDINE 20 MG TAB PO SCH ×2 (08:34→20:18)
--- NOTE | 2022-07-05 08:44 | Hospitalist Progress Note ---
Date of Service July 05, 2022 Assessment & Plan (1) Ankle fracture: Plan: Acute/unstable - low risk right ankle fracture/oblique fibula fracture/question tibial avulsion fracture- - Dr. Foy consulted from orthopedic surgery, appreciate assistance - cast applied to RLE, will need outpatient ortho f/u in 2 weeks with updated x-rays to monitor healing - Strict NWB to RLE x 4-6 weeks - On Eliquis which is providing adequate DVT ppx - PT/OT eval completed, recommending rehab, pt very upset by this and refusing rehab - CM on consult to assist in dc planning - See above note, trying to get more care at home, not safe to return home until more care is able t be provided - Pain control with APAP (increase to 1000mg q8h prn), OxyIR 5mg q4h prn mod pain, OxyIR 10mg q4h prn severe pain (2) Venous stasis ulcer of left lower extremity: Plan: Left lower extremity venous ulcer - chronic/stable - Wound care consulted and changed patient's Coban lite compression wrap LLE - Patient to change every Wednesday, Wednesday and Wednesday (3) Atrial fibrillation: Plan: Chronic/stable - Continue amiodarone, apixaban, diltiazem extended release, furosemide, lisinopril, metoprolol succinate, potassium chloride (4) Depression with anxiety: Plan: chronic/stable Continue gabapentin, sertraline, and vibegron (5) Fibromyalgia: Plan: Chronic pain syndrome/fibromyalgia - stable - Continue gabapentin 800mg TID (6) Urinary incontinence: Plan: - Cavazos placed increase in skin irritation due to bed ridden with urinary incontinence - Continue Gemtesa Plan Patient is medically stable for discharge BUT from a safety standpoint is not felt to be safe to return home as her significant other//caregiver does not feel that he can help her transfer from bed to wheelchair alone given she was a max 2 assist. He has called multiple agencies, including his own, and they are unable to provide additional caregivers until after the hol. She is refusing rehab and she has capacity to make that decision. She has been urged not to sign out AMA but stay another night to determine that the appropriate support measures are in place for her to return home. She will now be made a full admission and continue inpatient stay until a safe discharge plan is in place. Plan d/w Dr. Emmanuel. Admission and Anticipated Discharge Date Admission Date: July 03, 2022 Subjective Patient seen this morning in rounds. She has skin breakdown and candidal irritation in skin folds. She is irritated due to the purewick. She is mainly incontinent of urine, which is not new for her. Patiet follow with wound and has been evaluated by them on 07/03/22 Patient is medically stable for discharge BUT from a safety standpoint is not felt to be safe to return home as her significant other//caregiver does not feel that he can help her transfer from bed to wheelchair alone given she was a max 2 assist. Per records the has called multiple agencies, including his own, and they are unable to provide additional caregivers until after the and patient refused rehab and she has capacity to make that decision. Review of Systems Review of Systems: The patient denies chest pain, palpitations, shortness of breath, dyspnea on exertion, cough, sore throat, fevers, chills, sweats, weight change, fatigue, nausea, vomiting, diarrhea , constipation, abdominal pain, pelvic pain, blood in urine or stool, dysuria, urinary frequency or urgency, lightheadedness, dizziness, headache, memory loss, loss of consciousness, abnormal bruising or bleeding, focal or generalized weakness, numbness or tingling in arms, generalized arthralgias or myalgias, back or neck pain, or night sweats. The review of systems is otherwise negative other than for that already noted above, and at least 10 systems have been reviewed. Physical Exam Constitutional: well developed, + morbidly obese and comfortable; no acute distress Neck: trachea midline, no thyromegaly Respiratory: normal respiratory effort, lungs clear to auscultation Cardiovascular: Rate/Rhythm: + irregularly irregular Heart Sounds: normal S1 and normal S2 Skin: candidal rash in breast folds, abdominal pannus and groin area red and irritated Psychiatric: A+Ox3, euthymic affect Results & Data Results & Data Vital Signs (Past 12 Hours) Vital Signs Temp Pulse Resp BP Pulse Ox O2 Del Method 07/05/22 07:17 36.9 C 88 18 122/68 96 Room Air 07/04/22 22:09 36.9 C 96 H 18 126/79 94 Room Air PG Care Time/CCT Total # of Minutes Spent Total Time Spent with Patient: Total time spent is greater than 50% in coordination of care (as documented) at patient's floor/unit and/or counseling patient: Coding Level of Care Code 99474 SUB INP/OBS CARE 03/04MIN Diagnoses Ankle fracture S82.899A Venous stasis ulcer of left lower extremity I83.029; L97.929 Atrial fibrillation I48.91 Depression with anxiety F41.8 Fibromyalgia M79.7 Urinary incontinence R32
[2022-07-06] MEDS: oxyCODONE HCL IR 5 MG TAB (IMMEDIATE RELEASE) PO PRN ×3 (06:25→21:04)
[2022-07-06 06:53] LABS: Hematocrit (blood only) 37.8 % (37.0-47.0); Hemoglobin 12.1 g/dl (12.0-16.0); Mean Corpuscular Hemoglobin 27.8 pg (25.0-34.0); Mean Corpuscular Volume 86.7 fL (80.0-100.0); Mean Platelet Volume 11.3 fL (9.4-12.4); Platelet Count 269 K/uL (130-400); RDW Coefficient of Variation 16.8 % (11.5-14.5); RDW Standard Deviation 54.4 fL (36.4-46.3); Red Blood Count 4.36 M/uL (4.20-5.40)
[2022-07-06 07:15] LABS: Albumin Globulin Ratio 0.9 (0.9-2); Albumin Level 3.4 gm/dl (3.4-5.0); BUN Creatinine Ratio 21.3 (10-20); Bilirubin,Total 0.4 mg/dl (0.2-1.0); Creatinine Clr Calc Pharmacy 97.8 ml/min; Est GFR (African American) 92.9 ml/min; Est GFR (Non-African American) 80.2 ml/min; Globulin 3.7 gm/dl (2.5-4.0); Potassium 3.7 mmol/L (3.5-5.1); Total Protein 7.1 gm/dl (6.0-8.3)
[2022-07-06] MEDS: AMIODARONE 200 MG TAB PO SCH (08:58)
[2022-07-06] MEDS: FAMOTIDINE 20 MG TAB PO SCH ×2 (08:59→21:03)
[2022-07-06] MEDS: dilTIAZem HCL 240 MG CAPCR PO SCH (08:59)
[2022-07-06] MEDS: GABAPENTIN 800 MG TAB PO SCH ×3 (08:59→21:03)
[2022-07-06] MEDS: lisinopril 40 MG TAB PO SCH ×2 (08:59→21:03)
[2022-07-06] MEDS: FUROSEMIDE 40 MG TAB PO SCH (08:59)
[2022-07-06] MEDS: METOPROLOL SUCC 25MG EXT REL TAB PO SCH (09:00)
[2022-07-06] MEDS: PANTOprazole 40 MG TAB PO SCH (09:00)
[2022-07-06] MEDS: SERTRALINE HCL 50 MG TABLET PO SCH (09:00)
[2022-07-06] MEDS: SIMVASTATIN 10 MG TAB PO SCH (09:00)
[2022-07-06] MEDS: APIXABAN 5 MG TABLET PO SCH ×2 (09:00→21:03)
[2022-07-06] MEDS: POTASSIUM CHLORIDE CRTAB 20 MEQ TABCR PO SCH (09:00)
[2022-07-06] MEDS: NYSTATIN POWDER 15GM BTL EXT SCH ×2 (09:01→21:02)
[2022-07-06] MEDS: VIBEGRON 75 MG TAB PO SCH (09:01)
--- NOTE | 2022-07-06 12:59 | Hospitalist Progress Note ---
Date of Service July 06, 2022 Assessment & Plan (1) Ankle fracture: Plan: Acute/unstable - low risk right ankle fracture/oblique fibula fracture/question tibial avulsion fracture- - Dr. Foy consulted from orthopedic surgery, appreciate assistance - cast applied to RLE, will need outpatient ortho f/u in 2 weeks with updated x-rays to monitor healing - Strict NWB to RLE x 4-6 weeks - On Eliquis which is providing adequate DVT ppx - PT/OT eval completed, recommending rehab, but patient has refused this - CM on consult to assist in dc planning - See above note, trying to get more care at home, not safe to return home until more care is able to be provided, hopeful for 07/07 - Pain control with APAP (increase to 1000mg q8h prn), OxyIR 5mg q4h prn mod pain, OxyIR 10mg q4h prn severe pain (2) Venous stasis ulcer of left lower extremity: Plan: Left lower extremity venous ulcer - chronic/stable - Wound care consulted and changed patient's Coban lite compression wrap LLE - Patient to change every Wednesday, Wednesday and Wednesday (3) Atrial fibrillation: Plan: Chronic/stable - Continue amiodarone, apixaban, diltiazem extended release, furosemide, lisinopril, metoprolol succinate, potassium chloride (4) Depression with anxiety: Plan: chronic/stable Continue gabapentin, sertraline, and vibegron (5) Fibromyalgia: Plan: Chronic pain syndrome/fibromyalgia - stable - Continue gabapentin 800mg TID (6) Urinary incontinence: Plan: Chronic/stable - Cavazos placed d/t increase in skin irritation due to bed ridden with urinary incontinence - Continue Gemtesa Plan Patient is medically stable for discharge BUT from a safety standpoint is not felt to be safe to return home as her significant other//caregiver does not feel that he can help her transfer from bed to wheelchair alone given she was a max 2 assist. He has called multiple agencies, including his own, and they are unable to provide additional caregivers until after the hol. She is refusing rehab and she has capacity to make that decision. She has been urged not to sign out AMA but remain in house until appropriate support measures are in place for her to return home, which can hopefully be facilitated tomorrow (07/07). Plan d/w Dr. Emmanuel. Admission and Anticipated Discharge Date Admission Date: July 03, 2022 Subjective Patient seen on daily rounds this morning. Has no specific complaints. Pain in R leg is adequately controlled. No chest pain or dyspnea. Cavazos placed yesterday due to labial irritation from external catheter. Physical Exam Physical Exam: GENERAL: 72 yo well-developed morbidly obese F. AAOx4. NAD. LUNGS: Clear to auscultation bilaterally w/o W/R/R. CARDIOVASCULAR: Irregularly irregular with controlled rate : Cavazos in place EXTREMITIES: chronic b/l LE lymphedema. SKIN: excoriated skin folds d/t yeast/jluis Results & Data Results & Data Vital Signs (Past 12 Hours) Vital Signs Temp Pulse Resp BP Pulse Ox O2 Del Method 07/06/22 08:00 36.8 C 105 H 20 129/75 91 Room Air PG Care Time/CCT Total # of Minutes Spent Total Time Spent with Patient: Total time spent is greater than 50% in coordination of care (as documented) at patient's floor/unit and/or counseling patient: Coding Level of Care Code 61580 SUB INP/OBS CARE 03/04MIN Diagnoses Ankle fracture S82.899A Venous stasis ulcer of left lower extremity I83.029; L97.929 Atrial fibrillation I48.91 Depression with anxiety F41.8 Fibromyalgia M79.7 Urinary incontinence R32
[2022-07-06] MEDS: ACETAMINOPHEN 500 MG TAB PO PRN (21:04)
[2022-07-07] MEDS: oxyCODONE HCL IR 5 MG TAB (IMMEDIATE RELEASE) PO PRN (07:58)
--- NOTE | 2022-07-07 09:42 | Orthopedic Progress Note ---
Date of Service July 07, 2022 Assessment & Plan (1) Ankle fracture: Plan: Cast is in place, no complaints from pt and negative for any skin irritation on exam today Discussed importance of maintaining nonweightbearing on Right LE x 6 weeks Wheelchair use only Pain control PO meds per medicine service discretion DVT per med service Patient is scheduled in outpt office to change cast and obtain next set of xray 07/16/22 Case management eval for discharge planning. With questions contact our clinic at [phone] Present on Admission?: Yes (2) Lymphedema: (3) Morbid obesity: (4) Legal blindness: Admission and Anticipated Discharge Date Admission Date: July 03, 2022 Subjective Patient seen bedside this am. She reports she is doing well. She is not c/o of any pain in her right leg or irritation from cast. She denies any paresthesia in the right foot or toes. She denies any fever ,chills, CP or SOB Review of Systems Review of Systems: Please refer to HPI Physical Exam Physical Exam: Right Lower Extremity: Cast is clean dry and intact. Skin is normal in color and temperature over toes. Negative for any irritation from cast proximally and distally. Cap refill approx 3 seconds. Toes mobile. Able to detect light sensation to touch over toes/foot/lower leg. Unable to perform SLR. Results & Data Vital Signs (Past 12 Hours) Vital Signs Temp Pulse Resp BP Pulse Ox O2 Del Method 07/07/22 07:02 36.7 C 98 H 16 133/66 94 Room Air 07/06/22 22:42 36.7 C 102 H 20 110/56 L 97 Room Air
[2022-07-07] MEDS: AMIODARONE 200 MG TAB PO SCH (09:44)
[2022-07-07] MEDS: GABAPENTIN 800 MG TAB PO SCH ×2 (09:45→14:50)
[2022-07-07] MEDS: FAMOTIDINE 20 MG TAB PO SCH (09:45)
[2022-07-07] MEDS: FUROSEMIDE 40 MG TAB PO SCH (09:45)
[2022-07-07] MEDS: APIXABAN 5 MG TABLET PO SCH (09:45)
[2022-07-07] MEDS: lisinopril 40 MG TAB PO SCH (09:45)
[2022-07-07] MEDS: dilTIAZem HCL 240 MG CAPCR PO SCH (09:45)
[2022-07-07] MEDS: VIBEGRON 75 MG TAB PO SCH (09:46)
[2022-07-07] MEDS: POTASSIUM CHLORIDE CRTAB 20 MEQ TABCR PO SCH (09:46)
[2022-07-07] MEDS: NYSTATIN POWDER 15GM BTL EXT SCH (09:46)
[2022-07-07] MEDS: PANTOprazole 40 MG TAB PO SCH (09:46)
[2022-07-07] MEDS: SERTRALINE HCL 50 MG TABLET PO SCH (09:46)
[2022-07-07] MEDS: METOPROLOL SUCC 25MG EXT REL TAB PO SCH (09:46)
[2022-07-07] MEDS: SIMVASTATIN 10 MG TAB PO SCH (09:46)
--- NOTE | 2022-07-07 16:04 | Discharge Summary ---
Date of Service July 07, 2022 Admission HPI Per Admitting Provider the patient is a 72-year-old female with a past medical history including lymphedema, venous stasis ulcer of left lower extremity, abnormal ankle-brachial index, gait instability, legal blindness, trigger, atrial fibrillation, depression with anxiety, hyperlipidemia, urinary incontinence, spinal stenosis, osteoporosis, fibromyalgia, morbid obesity with BMI 45.9, and hypertension. The patient was going in for routine visit to outpatient wound care center where she was going to have her Unna boot on left lower extremity changed, however, as she was getting out of the car her right lower extremity caught on the wheelchair, she heard a pop as she was turning and developed pain. She went to the wound care center, told them of her discomfort, and they sent her over to the ED for assessment. X-rays of right lower extremity showed a oblique right fibula fracture, and right tibial avulsion fracture. She was given Tylenol 1 g p.o., and oxycodone 2.5 mg p.o., and referred for evaluation for admission. Principal Diagnosis right ankle fracture left leg lymphedema morbid obesity Discharge Exam pt is stable to discharge, can pivot on left leg and use transfer board Discharge Data Allergies Allergy/AdvReac Type Severity Reaction Status Date / Time strawberry Allergy Verified 07/02/22 10:32 oxycodone [From OxyContin] AdvReac Severe sob Verified 07/01/22 16:13 Consultations 07/01/22 19:27 ED Decision to Admit Stat 07/02/22 04:50 Consult Orthopedic Surgery Routine Hospital Course (1) Ankle fracture: Acute/unstable - low risk right ankle fracture/oblique fibula fracture/question tibial avulsion fracture- - Dr. Foy consulted from orthopedic surgery, appreciate assistance - cast applied to RLE, will need outpatient ortho f/u in 2 weeks with updated x-rays to monitor healing - Strict NWB to RLE x 4-6 weeks - On Eliquis which is providing adequate DVT ppx - PT/OT eval completed, recommending rehab, but patient has refused this and will care at home - CM on consult to assist in dc planning - See above note, trying to get more care at home, not safe to return home until more care is able to be provided, hopeful for 07/07 - Pain control with APAP (increase to 1000mg q8h prn), (2) Venous stasis ulcer of left lower extremity: Left lower extremity venous ulcer - chronic/stable - Wound care consulted and changed patient's Coban lite compression wrap LLE -recommend to follow up with wound care as outpt (3) Atrial fibrillation: Chronic/stable - Continue amiodarone, apixaban, diltiazem extended release, furosemide, lisinopril, metoprolol succinate, potassium chloride (4) Depression with anxiety: chronic/stable Continue gabapentin, sertraline, and vibegron (5) Fibromyalgia: Chronic pain syndrome/fibromyalgia - stable - Continue gabapentin 800mg TID (6) Urinary incontinence: Chronic/stable - Cavazos placed d/t increase in skin irritation due to bed ridden with urinary incontinence - Continue Gemtesa Total Time Total Time Spent Total Time Spent (In Minutes): It required greater than 30 minutes to prepare this patient for discharge Discharge Plan Discharge Items Patient Disposition: Home - Home Health Services Reason For Visit: FIBULA FRACTURE Discharge Diagnosis: fall resulting in R leg fracture Condition on Discharge: Good Activity: Per Instructions section Activity Comment: non weight bearing on right leg Non-emergency contact: Primary Care Provider and Surgeon Call non-emergency contact if: your symptoms worsen Follow-up/Referrals: Rae Torrez CRNP [Primary Care Provider] - Loyd Foy MD [Physician] - 07/16/22 9:00 am Diet: Low Sodium (2gm) Addtl Attending Provider Instructions: please follow up with your primary care within a week of discharge Addtl [employer] Specialist Provider Instructions: Orthopedic instructions: Nonweightbearing on Right LE x 6 weeks starting 07/02 Keep cast clean and dry at all times. Keep heel off of bed. Allowed to wiggle toes and do full movement of knee and hip as cast allows Apply moleskin around cast edges as needed for comfort. Wheelchair use only Pain control PO meds per medicine service discretion. DVT as ordered/instructed by primary service. Call [phone] with any questions or concerns, issues with the cast, or need to reschedule appointment. Pending Studies at Discharge: No Stand-Alone Forms: My [employer], Smoking Cessation Medications and DC Order Prescriptions: New oxycodone 5 mg Tablet 10 mg PO Q4H PRN (Reason: pain) Qty: 30 0RF Continued apixaban 5 mg tablet 5 mg PO BID Qty: 60 2RF Gemtesa 75 mg tablet 75 mg PO DAILY Qty: 90 0RF diltiazem HCl 240 mg tablet extended release 24 hr 240 mg PO DAILY amiodarone 200 mg tablet 200 mg PO DAILY diclofenac sodium 1 % gel 2 g topical DIRECTED PRN (Reason: Pain) sertraline 50 mg tablet 50 mg PO DAILY Qty: 30 2RF metoprolol succinate 25 mg tablet extended release 24 hr 25 mg PO DAILY Qty: 30 2RF pantoprazole 40 mg tablet,delayed release (DR/EC) 40 mg PO DAILY Qty: 30 2RF simvastatin 10 mg tablet 10 mg PO DAILY Qty: 30 2RF lisinopril 40 mg tablet 40 mg PO BID Qty: 30 2RF famotidine 20 mg tablet 20 mg PO BID Qty: 60 2RF furosemide 40 mg tablet 40 mg PO DAILY Qty: 30 2RF gabapentin 800 mg tablet 800 mg PO TID sumatriptan succinate 50 mg tablet See Rx Instructions PO .COMPLEX PRN (Reason: migraine headache) Qty: 30 1RF Rx Instructions: PER PT "DID NOT STONE RUBBER FROM PHARMACY YET". take 1 tab at onset of headache; if no relief may repeat 1 tab after at least 2 hrs; max = 4 tabs/24 hr PO PRN; potassium chloride 20 mEq tablet extended release 20 meq PO DAILY Rx Instructions: TAKE ONE TABLET BY MOUTH DAILY Discharge Orders: Discharge Order (Routine); Ordered 07/07/22 Ordered By: Jose Emmanuel Admission Data Admit Date/Time: 07/03/22 15:21 Attending Provider: Jose Emmanuel Admit Provider: Amilcar Rodriguez Primary Care Provider: Rae Torrez Other Providers: Amilcar Rodriguez ; Loyd Foy Coding Level of Care Code 55204 INP/OBS DISCH >30 MIN Diagnoses Ankle fracture S82.899A Venous stasis ulcer of left lower extremity I83.029; L97.929 Atrial fibrillation I48.91 Depression with anxiety F41.8 Fibromyalgia M79.7 Urinary incontinence R32
== END 2022-07-07 16:43 | disposition home health service (06) | DRG 563 ==
LOC: 3N 15:26 → ED 15:26 → SUATTDRO 19:53 → 3N 20:30